=== PATIENT | female | born 1975 | race Caucasian/White ===

== ENCOUNTER 2017-08-14 20:33 | Emergency (ER) | payer OTHER ==
--- OUTSIDE RECORDS SUMMARY | 2017-08-14 20:36 | XMS REPORT ---
:1975 [facility] [address] [place] [id number] Care Team Providers Name Role Phone ANTHONY GOMEZ Unavailable Unavailable Problems This patient has no known problems. Allergies, Adverse Reactions, Alerts This patient has no known allergies or adverse reactions. Medications This patient has no known medications. Results Test Description Test Time Test Comments Text Results Atomic Results Result Comments OCCULT BLOOD, STOOL 2017-03-20 13:18:00 Test Item Value Reference Range Comments FECAL OCCULT BLOOD (BEAKER) (test onrn=500) Negative Negative OCCULT BLOOD, [id number] 13:18:00 Test Item Value Reference Range Comments FECAL OCCULT BLOOD (BEAKER) (test zmxd=712) Negative Negative CT, CTA AAA, W/ DUY.EXT.[id number] 16:59:00Reason for Exam:->esrd; eval for renal txp; PVD; please examine pelvis to toes PLEASE EXAMINE PELVIS TO TOES [facility]end[facility] BeginsREPORT STATUS :A Addendum: I agree with the previously described non vascular findings. Signed: Cheo Engel MDReport Verified Date/Time: 2016 16:59:09 Reading Location: [facility] B1 P048 Angio Body Reading RoomAddendum EndsFINAL REPORT CT angiography of the abdominal aorta with runoff, 27 February 2017 INDICATION: This is a 41 years old female, with end-stage renal disease presents for pretransplant assessment. Note, on the side of the order, it also indicates to include down to the toes, presumably for peripheral vascular disease. This study is performed in attempt to avoid an invasive procedure. TECHNIQUE: Spiral acquisition before and during contrast administration using a Siemens multidetector CT scanner. Multiplanar 3-D volumerendering reformation was performed using independent workstation interactively by the dictating physician and the 3-D specialist. The amount of contrast used and method of administration can be found in scanned EPIC document. This exam was performed according to our departmental dose- optimisation programme, which includes automated exposure control, adjustment of the mA and/or kV according to patient size and/or use of iterative reconstruction technique. Dose modulation, iterative reconstruction, and/or weight based adjustment of the mA/kV was utilized to reduce the radiation dose to as low as reasonably achievable. FINDINGS: VASCULAR: The abdominal aorta is normal in course and calibre. No atherosclerosis is seen. No acute aortic pathology is identified. Quantitative dimensions of the abdominal aorta are as follows: 1.5 cm at the mesenteric level; 1.6 cm at the renal level; 1.4 cm at the aortic bifurcation. The coeliac axis, SMA, GABE are widely patent. The renal arteries are patent though they are small in calibre consistent with end-stage renal disease. The common iliac, external iliac, common femoral arteries, bilaterally, are widely patent. No stenosis is seen and no atherosclerosis is identified. Wet Milling Wheel Operator dimensions of the left and right external iliac artery is approximately 6 mm. Similarly, in the delayed images, the pelvic veins are seen to be patent, bilaterally and no venous thrombosis is seen and no narrowing is identified. Wet Milling Wheel Operator dimension of the left and the right external iliac vein is approximately 11 mm, bilaterally. The SFA, bilaterally, are widely patent.There is minimal calcification identified in the distal left and right SFA, that is nonobstructive and eccentrically located. The left and the right profunda system are widely patent. The popliteal arteries, bilaterally , are widely patent. In the left lower extremity, the left tibioperoneal trunk has nonobstructive eccentric calcific atherosclerosis identified. No stenosis is seen. The left anterior tibial artery is well seen down to the left of the ankle and is widely patent. At image 813, at the proximal segment of the dorsalis pedis artery, that could be potentially lesion identified though it is distal in nature, incompletely assessed due to its small size. The left peroneal artery is well seen down to the level of the ankle with no stenosis identified. There is nonobstructive atherosclerosisscattered along the course of the left posterior tibial artery though no significant stenosis is seen and the plantar arch is seen proximally. In the right lower extremity, the right anterior tibial artery is well seen down to level of the ankle and the dorsalis pedis artery is well seen distally no stenosis is seen. The right tibioperoneal trunk has nonobstructive atherosclerosis identified no stenosis is identified.. The left posterior tibial artery is widely patent, well seen down to level of theankle with no stenosis identified and the plantar arch is well seen. The left peroneal artery is also patent. NONVASCULAR: The lung bases are unremarkable. In the abdomen, the liver and spleen appears unremarkable. The liver edge is smooth. No abnormal enhancing structure is identified. Patient is post cholecystectomy. The adrenal glands are not enlarged. The pancreas appears unremarkable. The kidneys are atrophic consistent with end-stage renal disease status. No hydronephrosis or perirenal fluidcollection is seen. A number of small subcentimeter hypodensities identified, too small to characterize. A parapelvic cyst is identified at image 93 in the left renal pelvis with no enhancement after contrast administration indicating simple in nature. Bowel is not well assessed by CT angiography as enteric contrast is not given. No obvious bowel dilation is identified. The appendix appears unremarkable. The bladder is not distended. The uterus is identified. Both ovaries are seen with small cysts identified. They are all less than 4 cm in size, taking into account the patient's age, likely physiologic in nature. In general, CT is not optimised in the assessment of pelvic gynecological structures. No free air or free fluid seen abdomen and pelvis. No significant retroperitoneal adenopathy is identified. Some small lymph nodes. In the bony windows, no acute bony pathology is identified. The toesare incompletely imaged though the right big toe is not identified that may be due to prior surgery.The status of the toes can be easily assessed clinically. CONCLUSIONS: 1. Unremarkable abdominal aorta. Quantitative dimensions of the abdominal aorta are as described above. 2. The pelvic arteries and the pelvic veins are patent with no arterial stenosis or venous thrombosis identified. Wet Milling Wheel Operator dimensions of the left and right external iliac artery and veins as described above. 3. The SFAand the popliteal arteries, bilaterally, are widely patent. 4. Details of the runoff vessels as described above. Essentially three-vessel runoff is seen. There is likely disease seen in the visualizeddorsalis pedis artery on the left. 5. Other findings as described above. 6. An addendum will be dictated by the Leather Grader Radiologist regarding the nonvascular findings. Signed: Dc Ramos MDReport Verified Date/Time: 02/27/2017 13:19:48 Reading Location: [place] [address] Cardiology MRI URINALYSIS W/ [id number] 15:39:00 Test Item Value Reference Range Comments COLOR (BEAKER) (test fhjl=888) Yellow CLARITY (BEAKER) (test taxd=037) Cloudy SPECIFIC GRAVITY UA (BEAKER) (test pocm=606) 1.010 1.001-1.035 PH UA (BEAKER) (test wvzx=837) 8.5 5.0-8.0 PROTEIN UA (BEAKER) (test ctoo=822) 300 mg/dL Negative GLUCOSE UA (BEAKER) (test deqt=723) 100 mg/dL Negative KETONES UA (BEAKER) (test ospd=940) Negative Negative BILIRUBIN UA (BEAKER) (test vyro=467) Negative Negative BLOOD UA (BEAKER) (test lzrm=465) Negative Negative NITRITE UA (BEAKER) (test xbrp=246) Negative Negative LEUKOCYTE ESTERASE UA (BEAKER) (test ytdr=327) Moderate Negative UROBILINOGEN UA (BEAKER) (test ikbo=497) 0.2 mg/dL 0.2-1.0 RBC UA (BEAKER) (test gbhi=235) 2 /HPF WBC UA (BEAKER) (test ncdq=848) 15 /HPF BACTERIA (BEAKER) (test nqik=918) Few SQUAMOUS EPITHELIAL (BEAKER) (test zfsh=335) 78 /HPF SOURCE(BEAKER) (test zpkm=0088) HEMOGLOBIN [id number] 19:27:00 Test Item Value Reference Range Comments HEMOGLOBIN A1C (BEAKER) (test ewwk=607) 6.1 % 4.3-6.1 URINALYSIS W/ REFLEX URINE [id number] 16:05:00 Test Item Value Reference Range Comments COLOR (BEAKER) (test dkxa=049) Yellow CLARITY (BEAKER) (test qxxw=900) Hazy SPECIFIC GRAVITY UA (BEAKER) (test eldy=636) 1.010 1.001-1.035 PH UA (BEAKER) (test iflp=789) 8.5 5.0-8.0 PROTEIN UA (BEAKER) (test zopi=219) 300 mg/dL Negative GLUCOSE UA (BEAKER) (test gszh=503) 100 mg/dL Negative KETONES UA (BEAKER) (test gfgt=565) Negative Negative BILIRUBIN UA (BEAKER) (test jlwh=004) Negative Negative BLOOD UA (BEAKER) (test xzci=969) Negative Negative NITRITE UA (BEAKER) (test ofps=316) Negative Negative LEUKOCYTE ESTERASE UA (BEAKER) (test thvl=444) Moderate Negative UROBILINOGEN UA (BEAKER) (test upxz=233) 0.2 mg/dL 0.2-1.0 RBC UA (BEAKER) (test jmyd=124) 0 /HPF WBC UA (BEAKER) (test zqtk=800) 22 /HPF BACTERIA (BEAKER) (test pqbh=121) Rare SQUAMOUS EPITHELIAL (BEAKER) (test llzm=466) 6 /HPF SOURCE(BEAKER) (test rzqn=2059) AB SPECIFICITY CLASS [id number] 12:27:00 Test Item Value Reference Range Comments DATE OF SERUM (BEAKER) (test lcrl=7716) [id number] SERUM # (BEAKER) (test tkkg=7374) [id number] AB SPECIFICITY CLASS I (BEAKER) (test See Scanned Report qdlm=9237) HLA [id number] 15:00:00 Test Item Value Reference Range Comments HLA RESULT (BEAKER) (test wrhr=4233) See Scanned Report HLA-A AG1 (BEAKER) (test ltna=6417) HLA-A AG2 (BEAKER) (test trlt=6374) HLA-B AG1 (BEAKER) (test twxc=4787) HLA-B AG2 (BEAKER) (test qfag=7081) HLA-C AG1 (BEAKER) (test aayx=6083) HLA-C AG2 (BEAKER) (test wpuk=6756) HLA-DR AG1 (BEAKER) (test ixlv=4391) HLA-DR AG2 (BEAKER) (test zgky=2187) HLA-DQ AG1 (BEAKER) (test nryf=0438) HLA-DQ AG2 (BEAKER) (test whws=7295) HLA-DRW (BEAKER) (test xdoz=9083) FLOW PRA CLASS I AND [id number] 14:59:00 Test Item Value Reference Range Comments DATE OF SERUM (FESTUS) (test idng=2753) [id number] SERUM # (FESTUS) (test pvys=1855) [id number] FLOW PRA CLASS I AND II (test hdiu=3804) See Scanned Report URINE [id number] 12:34:00 Test Item Value Reference Range Comments CULTURE (BEAKER) (test >100,000 col/mL skin chalino hsjs=9318) CYTOMEGALOVIRUS ANTIBODY, [id number] 17:38:00 Test Item Value Reference Range Comments CYTOMEGALOVIRUS IGG ANTIBODY (BEAKER) (test Negative lovb=053) CYTOMEGALOVIRUS ANTIBODY, [id number] 17:38:00 Test Item Value Reference Range Comments CYTOMEGALOVIRUS IGM ANTIBODY (BEAKER) (test Negative rvkf=848) EBV-VCA ANTIBODY, [id number] 17:38:00 Test Item Value Reference Range Comments DIANE-FUENTES VCA IGG (BEAKER) (test yzgd=340) Positive EBV-VCA ANTIBODY, [id number] 17:38:00 Test Item Value Reference Range Comments DIANE-FUENTES VCA IGM (BEAKER) (test xjxg=936) Negative VARICELLA ZOSTER ANTIBODY, [id number] 17:24:00 Test Item Value Reference Range Comments VARICELLA ZOSTER IGG (AL) (BEAKER) (test tchf=2043) 3.0 Al VARICELLA ZOSTER RESULT INTERPRETATIONS: <=0.8 Al Nonreactive: Presumed non-immune to VZV 0.9-1.0 Al Equivocal >=1.1 Al Reactive: Presumed immune to [id number] 13:58:00 Test Item Value Reference Range Comments RPR SCREEN (BEAKER) (test odjp=811) Nonreactive Nonreactive HEPATITIS B SURFACE [id number] 09:42:00 Test Item Value Reference Range Comments HEPATITIS B SURFACE ANTIGEN (2) (BEAKER) (test Nonreactive Nonreactive ziih=8248) HEPATITIS B SURFACE [id number] 09:42:00 Test Item Value Reference Range Comments HEPATITIS B SURFACE ANTIBODY (BEAKER) (test 226.3 mIU/mL <8.0 kadz=504) HEPATITIS B CORE ANTIBODY, [id number] 09:42:00 Test Item Value Reference Range Comments HEPATITIS B CORE IGM ANTIBODY (BEAKER) (test Nonreactive Nonreactive vaty=088) HEPATITIS C [id number] 09:42:00 Test Item Value Reference Range Comments HEPATITIS C ANTIBODY (BEAKER) (test adxp=122) Nonreactive Nonreactive HIV-1 ANTIGEN WITH HIV-1/2 [id number] 09:42:00 Test Item Value Reference Range Comments HIV-1 ANTIGEN WITH HIV 1\T\2 ANTIBODY (2) Nonreactive Nonreactive (BEAKER) (test fytd=9129) PTH, [id number] 09:09:00 Test Item Value Reference Range Comments PARATHYROID HORMONE INTACT (BEAKER) (test 583.0 pg/mL 8.5-72.5 qjhf=586) Effective 03/17/2014: Reference Range ChangeNew: 8.5-72.5 Previous: 15.0- 90.0CBC W/PLT COUNT & AUTO [id number] 09:07:00 Test Item Value Reference Range Comments WHITE BLOOD CELL COUNT (BEAKER) (test xcnj=548) 8.6 K/ L 4.0-10.0 RED BLOOD CELL COUNT (BEAKER) (test dvjy=149) 3.36 M/ L 4.00-5.00 HEMOGLOBIN (BEAKER) (test wxdw=318) 11.4 GM/DL 12.0-15.0 HEMATOCRIT (BEAKER) (test jheq=915) 34.1 % 36.0-45.0 MEAN CORPUSCULAR VOLUME (BEAKER) (test fbey=187) 102.0 fL 82.0-99.0 MEAN CORPUSCULAR HEMOGLOBIN (BEAKER) (test 34.0 pg 27.0-33.0 qclh=515) MEAN CORPUSCULAR HEMOGLOBIN CONC (BEAKER) (test 33.4 GM/DL 32.0-36.0 dlov=076) RED CELL DISTRIBUTION WIDTH (BEAKER) (test 12.8 % 10.3-14.2 uwxe=182) PLATELET COUNT (BEAKER) (test vbcf=786) 289 K/CU MM 150-430 MEAN PLATELET VOLUME (BEAKER) (test gfto=260) 9.1 fL 6.5-10.5 NUCLEATED RED BLOOD CELLS (BEAKER) (test 0 /100 WBC 0-0 lqou=287) NEUTROPHILS RELATIVE PERCENT (BEAKER) (test 68 % zoly=490) LYMPHOCYTES RELATIVE PERCENT (BEAKER) (test 18 % tqva=200) MONOCYTES RELATIVE PERCENT (BEAKER) (test 9 % mfhk=203) EOSINOPHILS RELATIVE PERCENT (BEAKER) (test 4 % ptok=963) BASOPHILS RELATIVE PERCENT (BEAKER) (test 1 % qbxp=529) NEUTROPHILS ABSOLUTE COUNT (BEAKER) (test 5.81 K/ L 1.80-8.00 rtta=285) LYMPHOCYTES ABSOLUTE COUNT (BEAKER) (test 1.56 K/ L 1.48-4.50 yeyf=528) MONOCYTES ABSOLUTE COUNT (BEAKER) (test 0.73 K/ L 0.00-1.30 uquf=214) EOSINOPHILS ABSOLUTE COUNT (BEAKER) (test 0.38 K/ L 0.00-0.50 vuna=391) BASOPHILS ABSOLUTE COUNT (BEAKER) (test 0.06 K/ L 0.00-0.20 qqmq=168) 0.00COMPREHENSIVE METABOLIC [id number] 09:05:00 Test Item Value Reference Range Comments TOTAL PROTEIN (BEAKER) 8.5 gm/dL 6.0-8.3 (test ooig=036) ALBUMIN (BEAKER) (test 4.1 g/dL 3.5-5.0 xjmp=5045) ALKALINE PHOSPHATASE 111 U/L 40-150 (BEAKER) (test xlsz=492) BILIRUBIN TOTAL (BEAKER) 0.5 mg/dL 0.2-1.2 (test utfl=739) SODIUM (BEAKER) (test 140 meq/L 136-145 wbgw=024) POTASSIUM (BEAKER) (test 4.4 meq/L 3.5-5.1 kqld=337) CHLORIDE (BEAKER) (test 92 meq/L 98-107 sqiy=935) CO2 (BEAKER) (test 31 meq/L 22-29 ubal=118) BLOOD UREA NITROGEN 34 mg/dL 7-21 (BEAKER) (test wwnk=417) CREATININE (BEAKER) (test 7.06 mg/dL 0.57-1.25 xnlr=286) GLUCOSE RANDOM (BEAKER) 109 mg/dL 70-105 (test uhhm=798) CALCIUM (BEAKER) (test 9.5 mg/dL 8.4-10.2 syqf=143) AST (SGOT) (BEAKER) (test 16 U/L 5-34 urzi=782) ALT (SGPT) (BEAKER) (test 13 U/L 6-55 nxbp=357) EGFR (BEAKER) (test 6 mL/min/1.73 sq m ESTIMATED GFR IS NOT vstd=8879) ACCURATE CREATININE CLEARANCE IN PREDICTING GLOMERULAR FILTRATION RATE. ESTIMATED GFR IS NOT APPLICABLE FOR DIALYSIS PATIENTS. URIC [id number] 09:04:00 Test Item Value Reference Range Comments URIC ACID (BEAKER) (test fweh=135) 5.3 mg/dL 2.6-7.2 [id number] 09:04:00 Test Item Value Reference Range Comments PHOSPHORUS (BEAKER) (test qtpf=600) 4.8 mg/dL 2.3-4.7 LIPID [id number] 09:04:00 Test Item Value Reference Range Comments TRIGLYCERIDES (BEAKER) (test dlez=374) 214 mg/dL CHOLESTEROL (BEAKER) (test ucil=849) 192 mg/dL HDL CHOLESTEROL (BEAKER) (test mcny=193) 41 mg/dL LDL CHOLESTEROL CALCULATED (BEAKER) (test 108 mg/dL dzac=395) Triglyceride Reference Range: Low Risk <150 Borderline 150- 199 High Risk 200-499 Very High Risk >=500Cholesterol Reference Range: Low Risk <200 Borderline 200-239 High Risk > 240HDL Cholesterol Reference Range: Low Risk >=60 High Risk <40LDL Cholesterol Reference Range: Optimal <100 Near Optimal 100-129 Borderline 130-159 High 160-189 Very High >=190GAMMA GLUTAMYL TRANSFERASE (GGT)2016-07-25 09:04:00 Test Item Value Reference Range Comments GAMMA GLUTAMYL TRANSFERASE (BEAKER) (test fdcx=915) 11 U/L 9-64 LACTATE DEHYDROGENASE (LDH)2016-07-25 09:04:00 Test Item Value Reference Range Comments LACTATE DEHYDROGENASE (BEAKER) (test pjyd=776) 346 U/L 125-220 PT/[id number] 08:56:00 Test Item Value Reference Range Comments PROTIME (BEAKER) (test rjku=774) 13.6 seconds 11.7-14.7 INR (BEAKER) (test ohyp=198) 1.1 <=5.9 PARTIAL THROMBOPLASTIN TIME (BEAKER) (test 34.9 seconds 22.5-36.0 qeje=009) RECOMMENDED COUMADIN/WARFARIN INR THERAPY RANGESSTANDARD DOSE: 2.0 - 3.0 Includes: PROPHYLAXIS forvenous thrombosis, systemic embolization; TREATMENT for venous thrombosis and/or pulmonary embolus.HIGH RISK: Target INR is 2.5-3.5 for patients with mechanical heart valves.
--- OUTSIDE RECORDS SUMMARY | 2017-08-14 20:36 | XMS REPORT | Clinical Summary ---
:1975 Author Organization [facility] Address [address] [place] [address] Phone Care Team Providers Name Role Phone Unavailable Primary Care Provider Unavailable Allergies No Known Allergies Current Medications Prescription Sig. Disp. Refills Start Date End Date Status cloNIDine HCl Take 0.2 mg by mouth 2 Active (CATAPRES) 0.2 MG (two) times daily. tablet pioglitazone (ACTOS) Take 30 mg by mouth Active 30 MG tablet daily. insulin glargine Inject 28 Units Active (LANTUS) 100 unit/mL subcutaneously nightly injection Use as directed . calcium acetate 668 Take 1,336 mg by mouth Active mg (169 mg calcium) 3 (three) times daily Tab with meals . sevelamer (RENVELA) Take 800 mg by mouth 3 Active 800 mg tablet (three) times daily with meals. Active Problems Problem Noted Date Hypertension 03/20/2017 Last Assessment & Plan: Blood pressure well controlled on current medications. Pre-transplant evaluation for chronic kidney disease 12/21/2016 Last Assessment & Plan: Patient to be listed. ESRD (end stage renal disease) on dialysis ([facility]) 12/21/2016 Last Assessment & Plan: To list patient for transplant. Diabetic nephropathy associated with other specified diabetes mellitus 2016 ([facility]) Last Assessment & Plan: Has lost sensation in feet/legs. No pain. No intervention at this time. 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 Encouraged to exercise by walking for at least 20 min 3x a week. Hyperlipidemia, unspecified hyperlipidemia type 12/21/2016 Encounters Date Type Specialty Care Team Description 06/19/2017 Evaluation Transplant Best, ESRD (end stage Bhamidipati renal disease) on MD Lakhwinder dialysis ([facility]) (Primary Dx) 06/08/2017 Orders Only Lab Anjelica ESRD (end stage Cynthia Martinez MD renal disease) on dialysis ([facility]);Patient awaiting renal transplant 05/11/2017 Orders Only Lab Best, ESRD (end stage Bhamidipati renal disease) on MD Lakhwinder dialysis ([facility]);Patient awaiting renal transplant 05/08/2017 Orders Only Transplant Rebecca Hendrickson RN ESRD (end stage renal disease) on dialysis ([facility]) (Primary Dx);Patient awaiting renal transplant 05/01/2017 Abstract Transplant 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, AZUL 04/25/2017 Documentation Transplant Lori Quiñones 04/19/2017 Documentation Transplant Orion Rodriguez 04/19/2017 Documentation Transplant Rebecca Hendrickson, AZUL 04/14/2017 [facility] Charge Visit Transplant Sebastián Jewell MD Provider, [facility] Registry Generic 03/20/2017 Evaluation Transplant Best, Hypertension, Sebastián unspecified MD Lakhwinder type;ESRD (end stage renal disease) on dialysis ([facility]);Obesity (BMI 30-39.9);Pre-transpl ant evaluation for chronic kidney disease;Diabetic nephropathy associated with other specified diabetes mellitus ([facility]) 03/20/2017 Ancillary Orders Sebastián Bryan MD 03/20/2017 Ancillary Orders Sebastián Bryan MD 03/20/2017 Orders Only Transplant Aldair Escobar ESRD (end stage Hepatology renal disease) ([facility]);Pre-transplant evaluation for chronic kidney disease;Anemia of renal disease 03/20/2017 Orders Only Transplant Keyonna, Susanna, ESRD (end stage sales support engineer disease) ([facility]) (Primary Dx);Pre-transplant evaluation for chronic kidney disease;Anemia of renal disease 02/27/2017 Hospital Encounter Radiology Best, ESRD (end stage Bhamidipati renal disease) MD Lakhwinder ([facility]);Pre-transplant evaluation for chronic kidney disease;PVD (peripheral vascular disease) ([facility]) 02/27/2017 Telephone Transplant Sim, Na Y Appointment 01/29/2017 Orders Only Transplant 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, ESRD (end stage sales support engineer disease) ([facility]) (Primary Dx);Pre-transplant evaluation for chronic kidney disease;PVD (peripheral vascular disease) ([facility]) 01/29/2017 Orders Only Transplant 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 RN 01/26/2017 Orders Only Transplant 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 RN 01/22/2017 Telephone Transplant 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, 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 12/21/2016 Orders Only Transplant Best, ESRD (end stage Hepatology Bhamidipati renal disease) MD Lakhwinder ([facility]);Pre-transplant evaluation for chronic kidney disease;Other specified diabetes mellitus ([facility]);ESRD (end stage renal disease) on dialysis ([facility]) 12/21/2016 Evaluation Transplant Best, ESRD (end stage Bhamidipati renal disease) on MD Lakhwinder dialysis ([facility]) (Primary Dx);Pre-transplant evaluation for chronic kidney disease 12/21/2016 Evaluation Transplant Best, Pre-transplant Bhamidipati evaluation for MD Lakhwinder chronic kidney disease (Primary Dx);ESRD (end stage renal disease) on dialysis ([facility]);Diabetic nephropathy associated with other specified diabetes mellitus ([facility]);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, unspecified proliferative retinopathy type ([facility]);Blindness of left eye;Diabetic polyneuropathy associated with type 2 diabetes mellitus ([facility]) 12/21/2016 Orders Only Transplant 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, ESRD (end stage sales support engineer disease) ([facility]) (Primary Dx);Pre-transplant evaluation for chronic kidney disease;Other specified diabetes mellitus ([facility]) 12/21/2016 Committee Review Transplant Sim, Na Y 10/23/2016 Orders Only Transplant ProviderFelisa MD 10/20/2016 Telephone Transplant Sim, Na Y Appointment 09/07/2016 Telephone Transplant Neyda Robin Appointment (called patient about appointment with Dr. 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 Pre-evaluation after 08/13/2016 Family History Medical History Relation Name Comments Unremarkable Brother Diabetes Mother Hypertension Mother Lupus Mother Diabetes Sister Diabetes Sister Unremarkable Sister Relation Name Status Comments Brother Alive Father from a work accident Mother Alive Sister Alive Sister Alive Sister Alive Social History Tobacco Use Types Packs/Day Years Used Date Never Smoker Smokeless Tobacco: Never Used Alcohol Use Drinks/Week oz/Week Comments No Sex Assigned at Date Recorded Not on file Last Filed Vital Signs Vital Sign Reading Time Taken Blood Pressure 120/80 03/20/2017 10:07 AM [employer] Pulse 89 03/20/2017 10:07 AM [employer] Temperature 36.8 C (98.2 F) 03/20/2017 10:07 AM [employer] Respiratory Rate 16 03/20/2017 10:07 AM [employer] Oxygen Saturation 100% 03/20/2017 10:07 AM [employer] Inhaled Oxygen Concentration - - Weight 113.6 kg (250 lb 8 oz) 06/19/2017 10:50 AM [employer] Height 177.8 cm (5' 10") 06/19/2017 10:50 AM [employer] Body Mass Index 35.94 06/19/2017 10:50 AM [employer] Plan of Treatment Health Maintenance Due Date Last Done Comments INFLUENZA VACCINE 01/28/2018 Results Flow PRA Class II (06/08/2017 11:11 AM)Only the most recent of2 resultswithin the time period is included. Component Value Ref Range Flow Class II Percent Positive 0 Flow Class Report Comments Specimen Performing Laboratory Blood [facility] TEST[facility] ONE Rafaelmichael Lozada, MS: [id number] [place] [address] Flow PRA Class I (06/08/2017 11:11 AM)Only the most recent of2 resultswithin the time period is included. Component Value Ref Range Flow Class I Percent Positive 6 Flow Class Report Comments Specimen Performing Laboratory Blood [facility] TEST[facility] ONE [facility] [place], MS: [id number] [place] [address] AB Specificity Class I (06/08/2017 11:11 AM)Only the most recent of3 resultswithin the time period is included. Component Value Ref Range AB Specificity Class I NO CLASS I ANTIBODY DETECTED WITH MFIs > 4000 AB Specificity Titr Class Report Specimen Performing Laboratory Blood [facility] TEST[facility] ONE Rafael Lozada, MS: [id number] [place] [address] Occult blood, stool (03/20/2017 11:24 AM)Only the most recent of2 resultswithin the time period is included. Component Value Ref Range Occult blood Negative Negative Specimen Performing Laboratory Stool [facility] [address] [address] CTA AAA and Runoff (02/27/2017 12:28 PM) Specimen Performing Laboratory Guess Your Songs RIS Narrative Addendum Begins REPORT STATUS:A Addendum: I agree with the previously described non vascular findings. Signed: Cheo Engel MD Report Verified Date/Time:02/27/2017 16:59:09 Reading Location: [place] [id number] Angio Body Reading Room Addendum Ends FINAL REPORT CT angiography of the abdominal aorta [...] a Siemens multidetector CT scanner. Multiplanar 3-D volume rendering reformation was performed using independent workstation interactively by the dictating physician and the 3-D specialist. The amount of contrast used and method of administration can be found in scanned EPIC document. This exam was performed according to our departmental dose-optimisation programme, which includes automated exposure control, adjustment [...] is seen and no atherosclerosis is identified. Vocational Guidance Counselor dimensions of the left and right external iliac artery is approximately 6 mm. Similarly, in the delayed images, the pelvic veins are seen to be patent, bilaterally and no venous thrombosis is seen and no narrowing is identified. Vocational Guidance Counselor dimension of the left and the right external iliac vein is approximately 11 mm, bilaterally. The SFA, bilaterally, are widely patent. There is minimal calcification identified in the distal left and right SFA, that is nonobstructive and eccentrically located. The left and the right profunda system are widely patent. The popliteal arteries, bilaterally, are widely patent. In the left lower [...] with no stenosis identified. There is nonobstructive atherosclerosis scattered along the course of the left posterior [...] patent, well seen down to level of the ankle with no stenosis identified and the plantar [...] renal disease status. No hydronephrosis or perirenal fluid collection is seen. A number of small subcentimeter [...] no acute bony pathology is identified. The toes are incompletely imaged though the right big toe is not identified that may be due to prior surgery. The status of the toes can be easily assessed clinically. CONCLUSIONS: 1.Unremarkable abdominal aorta. Quantitative dimensions of the abdominal aorta are as described above. 2.The pelvic arteries and the pelvic veins are patent with no arterial stenosis or venous thrombosis identified. Vocational Guidance Counselor dimensions of the left and right external iliac artery and veins as described above. 3.The SFA and the popliteal arteries, bilaterally, are widely patent. 4.Details of the runoff vessels as described above. Essentially three-vessel runoff is seen. There is likely disease seen in the visualized dorsalis pedis artery on the left. 5.Other findings as described above. 6.An addendum will be dictated by the Harness Fitter Radiologist regarding the nonvascular findings. Signed: Dc Ramos MD Report Verified Date/Time:02/27/2017 13:19:48 Reading Location: [place] [address] Cardiology MRI Procedure Note Interface, External Ris In - 02/27/2017 5:01 PM CDT Addendum Begins REPORT STATUS:A Addendum: I agree with the previously described non vascular findings. Signed: Cheo Engel MD Report Verified Date/Time: 02/27/2017 16:59:09 Reading Location: [facility] P048 Angio Body Reading Room Addendum Ends FINAL REPORT CT angiography of the abdominal aorta [...] a Siemens multidetector CT scanner. Multiplanar 3-D volume rendering reformation was performed using independent workstation interactively by the dictating physician and the 3-D specialist. The amount of contrast used and method of administration can be found in scanned EPIC document. This exam was performed according to our departmental dose-optimisation programme, which includes automated exposure control, adjustment [...] is seen and no atherosclerosis is identified. Vocational Guidance Counselor dimensions of the left and right external iliac artery is approximately 6 mm. Similarly, in the delayed images, the pelvic veins are seen to be patent, bilaterally and no venous thrombosis is seen and no narrowing is identified. Vocational Guidance Counselor dimension of the left and the right external iliac vein is approximately 11 mm, bilaterally. The SFA, bilaterally, are widely patent. There is minimal calcification identified in the distal left and right SFA, that is nonobstructive and eccentrically located. The left and the right profunda system are widely patent. The popliteal arteries, bilaterally, are widely patent. In the left lower [...] with no stenosis identified. There is nonobstructive atherosclerosis scattered along the course of the left posterior [...] patent, well seen down to level of the ankle with no stenosis identified and the plantar [...] renal disease status. No hydronephrosis or perirenal fluid collection is seen. A number of small subcentimeter [...] no acute bony pathology is identified. The toes are incompletely imaged though the right big toe is not identified that may be due to prior surgery. The status of the toes can be easily assessed clinically. CONCLUSIONS: 1. Unremarkable abdominal aorta. Quantitative dimensions of the abdominal aorta are as described above. 2. The pelvic arteries and the pelvic veins are patent with no arterial stenosis or venous thrombosis identified. Vocational Guidance Counselor dimensions of the left and right external iliac artery and veins as described above. 3. The SFA and the popliteal arteries, bilaterally, are widely patent. 4. Details of the runoff vessels as described above. Essentially three-vessel runoff is seen. There is likely disease seen in the visualized dorsalis pedis artery on the left. 5. Other findings as described above. 6. An addendum will be dictated by the Harness Fitter Radiologist regarding the nonvascular findings. Signed: Dc Ramos MD Report Verified Date/Time: 02/27/2017 13:19:48 Reading Location: [place] [address] Cardiology MRI Urinalysis w/Microscopic (02/27/2017 11:49 AM) Component Value Ref Range Color, UA Yellow Clarity, UA Cloudy Specific [place], UA 1.010 1.001 - 1.035 pH, UA 8.5 (H) 5.0 - 8.0 Protein, UA 300 mg/dL (A) Negative Glucose, UA 100 mg/dL (A) Negative Ketones, UA Negative Negative Bilirubin, UA Negative Negative Blood, UA Negative Negative Nitrite, UA Negative Negative Leukocytes, UA Moderate (A) Negative Urobilinogen, UA 0.2 0.2 - 1.0 mg/dL RBC, UA 2 /HPF WBC, UA 15 /HPF Bacteria, UA Few Squam Epithel, UA 78 /HPF Specimen Source Specimen Performing Laboratory Urine [address] [address] Urinalysis w/Microscopic + Reflex to Culture (12/21/2016 2:49 PM) Component Value Ref Range Color, UA Yellow Clarity, UA Hazy Specific [place], UA 1.010 1.001 - 1.035 pH, UA 8.5 (H) 5.0 - 8.0 Protein, UA 300 mg/dL (A) Negative Glucose, UA 100 mg/dL (A) Negative Ketones, UA Negative Negative Bilirubin, UA Negative Negative Blood, UA Negative Negative Nitrite, UA Negative Negative Leukocytes, UA Moderate (A) Negative Urobilinogen, UA 0.2 0.2 - 1.0 mg/dL RBC, UA 0 /HPF WBC, UA 22 /HPF Bacteria, UA Rare Squam Epithel, UA 6 /HPF Specimen Source Specimen Performing Laboratory Urine [address] [address] Urine culture (12/21/2016 2:49 PM) Component Value Ref Range Result >100,000 col/mL skin chalino Specimen Performing Laboratory Urine [address] [address] Hemoglobin A1c (12/21/2016 2:26 PM) Component Value Ref Range Hemoglobin A1C 6.1 4.3 - 6.1 % Specimen Performing Laboratory Blood [facility] [address] [address] Mammography breast specimen (10/13/2016)PAP smear, thin prep (09/04/2016) Specimen Performing Laboratory Other after 08/13/2016
--- NOTE | 2017-08-14 21:34 | EDPHYS ---
Physician Documentation [facility] Name: Alba Aldridge Age: 42 yrs Sex: Female : 1975 Arrival Date: 08/14/2017 Time: 20:37 Bed Treatment Private MD: Kelli Schmid ED Physician Reuben Marin HPI: 08/14 21:32 This 42 yrs old Female presents to ER via Ambulatory with complaints of Dog kb Bite. 21:32 by a dog. Onset: The symptoms/episode began/occurred just prior to arrival. Animal kb information: The animal was reported to appear healthy. Animal's vaccinations are up to date. Secondary to the bite the patient reports multiple lacerations, that are superficial. Associated signs and symptoms: The patient has no apparent associated signs or symptoms. Severity of symptoms: At their worst the symptoms were mild, in the emergency department the symptoms are unchanged. The patient has not experienced similar symptoms in the past. The patient has not recently seen a physician. 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 - Social history:: Smoking status: Patient/guardian denies using tobacco. ROS: 21:32 Constitutional: Negative for fever, chills, and weight loss, Neck: Negative for injury, kb pain, and swelling, Cardiovascular: Negative for chest pain, palpitations, and edema, Respiratory: Negative for shortness of breath, cough, wheezing, and pleuritic chest pain, Abdomen/GI: Negative for abdominal pain, nausea, vomiting, diarrhea, and constipation, MS/Extremity: Negative for injury and deformity, Neuro: Negative for headache, weakness, numbness, tingling, and seizure. 21:32 Skin: Positive for laceration(s), of the right foot. Exam: 21:32 Constitutional: This is a well developed, well nourished patient who is awake, alert, kb and in no acute distress. Head/Face: Normocephalic, atraumatic. Chest/axilla: Normal chest wall appearance and motion. Nontender with no deformity. No lesions are appreciated. Cardiovascular: Regular rate and rhythm with a normal S1 and S2. No gallops, murmurs, or rubs. Normal PMI, no JVD. No pulse deficits. Respiratory: Lungs have equal breath sounds bilaterally, clear to auscultation and percussion. No rales, rhonchi or wheezes noted. No increased work of breathing, no retractions or nasal flaring. Abdomen/GI: Soft, non-tender, with normal bowel sounds. No distension or tympany. No guarding or rebound. No evidence of tenderness throughout. MS/ Extremity: Pulses equal, no cyanosis. Neurovascular intact. Full, normal range of motion. Neuro: Awake and alert, GCS 15, oriented to person, place, time, and situation. Cranial nerves II-XII grossly intact. Motor strength 5/5 in all extremities. Sensory grossly intact. Cerebellar exam normal. Normal gait. 21:32 Skin: injury, bite(s), superficial, of the right foot. Vital Signs: 20:45 BP 162 / 83; Pulse 87; Resp 18; Temp 97.2; Pulse Ox 100% on R/A; Weight 112.49 kg; aa1 Height 5 ft. 11 in. (180.34 cm); Pain 0/10; 20:45 Body Mass Index 34.59 (112.49 kg, 180.34 cm) aa1 MDM: 21:03 Patient medically screened. kb 21:32 Data reviewed: vital signs, nurses notes. Data interpreted: Pulse oximetry: on room air kb is 100 %. Interpretation: normal. Counseling: I had a detailed discussion with the patient and/or guardian regarding: the historical points, exam findings, and any diagnostic results supporting the discharge/admit diagnosis, the need for outpatient follow up, a family practitioner, to return to the emergency department if symptoms worsen or persist or if there are any questions or concerns that arise at home. Administered Medications: 21:52 Drug: Tetanus-Diphtheria Toxoid Adult 0.5 ml {[place] Operator: [employer]. Exp: bb 11/30/2019. Lot #: [id number]. } Route: IM; Site: left deltoid; 21:59 Follow up: Response: No adverse reaction bb 21:54 Drug: Augmentin 875 mg Route: PO; bb 21:59 Follow up: Response: No adverse reaction bb Disposition: 08/14/17 21:33 Discharged to Home. Impression: Bitten by dog. - Condition is Stable. - Discharge Instructions: Animal Bite, [id number]. - Prescriptions for Augmentin 875- 125 mg Oral Tablet - take 1 tablet by ORAL route every 12 hours for 7 days; 14 tablet. - Medication Reconciliation Form, Thank You Letter, Antibiotic Education, Prescription Opioid Use form. - Follow up: Emergency Department; When: As needed; Reason: Worsening of condition. Follow up: Private Physician; When: 2 - 3 days; Reason: Recheck today's complaints, Continuance of care, Re-evaluation by your physician. Addendum: 08/16/2017 18:57 Co-signature as Attending Physician, Reuben Marin MD I agree with the assessment and c edge plan of care. Signatures: Elham Narayan, INTERNATIONAL TRAVEL CONSULTANT-C INTERNATIONAL TRAVEL CONSULTANT-Ckb Gabrielle Zarate, RN RN aa1 Reuben Marin MD MD cha Ballard, Brenda, RN RN bb
--- NOTE | 2017-08-14 21:34 | ER ---
Nurse's Notes [facility] Emergency Department Name: Alba Aldridge Age: 42 yrs Sex: Female : 1975 Arrival Date: 08/14/2017 Time: 20:37 Bed Treatment Private MD: Kelli Schmid Diagnosis: Bitten by dog Presentation: 08/14 20:40 Presenting complaint: Patient states: her dog bit her on her R foot a couples hours aa1 ago. 2 small lacerations noted. Reports pet current on vaccinations. Transition of care: patient was not received from another setting of care. Onset of symptoms was August 14, 2017. Initial Sepsis Screen: Does the patient meet any 2 criteria? No. Patient's initial sepsis screen is negative. Care prior to arrival: None. 20:40 Method Of Arrival: Ambulatory aa1 20:40 Acuity: KADIE 4 aa1 20:50 Note [place] [facility] [employer] notified. aa1 Triage Assessment: 20:45 Bite description: bite sustained to right foot by a dog, animal information: aa1 vaccination(s) is current. General: Appears in no apparent distress. comfortable, Behavior is calm, cooperative, appropriate for age. 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 - Social history:: Smoking status: Patient/guardian denies using tobacco. Screenin:54 Abuse screen: Denies threats or abuse. Nutritional screening: No deficits noted. bb Tuberculosis screening: No symptoms or risk factors identified. Fall Risk None identified. Assessment: 21:54 General: Appears in no apparent distress. Behavior is calm, cooperative. Pain: bb Complains of pain in right foot. Neuro: Level of Consciousness is awake, alert, obeys commands, Oriented to person, place, time, situation. Cardiovascular: No deficits noted. Respiratory: Respiratory effort is even, unlabored. GI: No signs and/or symptoms were reported involving the gastrointestinal system. Derm: Skin is thin, Skin is pink, warm \T\ dry. Reports dog bite to right foot with several small abrasions. Musculoskeletal: Circulation, motion, and sensation intact. Injury Description: Abrasion sustained to right foot. 21:59 Reassessment: pt verbalized understanding of and agrees to plan of care discharge bb instructions given pt ambulated with steady gait to exit accompanied by family. Vital Signs: 20:45 BP 162 / 83; Pulse 87; Resp 18; Temp 97.2; Pulse Ox 100% on R/A; Weight 112.49 kg; aa1 Height 5 ft. 11 in. (180.34 cm); Pain 0/10; 20:45 Body Mass Index 34.59 (112.49 kg, 180.34 cm) aa1 ED Course: 20:37 Patient arrived in ED. es 20:37 Kelli Schmid MD is Private Physician. es 20:43 Triage completed. aa1 20:45 Arm band placed on right wrist. aa1 20:47 Elham Narayan FNP-C is [facility]. kb 20:47 Reuben Marin MD is Attending Physician. kb 21:54 Patient has correct armband on for positive identification. Adult w/ patient. bb 21:54 No provider procedures requiring assistance completed. Patient did not have IV access bb during this emergency room visit. Administered Medications: 21:52 Drug: Tetanus-Diphtheria Toxoid Adult 0.5 ml {Auto Hauler: [employer]. Exp: bb 11/30/2019. Lot #: [id number]. } Route: IM; Site: left deltoid; 21:59 Follow up: Response: No adverse reaction bb 21:54 Drug: Augmentin 875 mg Route: PO; bb 21:59 Follow up: Response: No adverse reaction bb Outcome: 21:33 Discharge ordered by . kb 22:00 Discharged to home ambulatory, with family. bb 22:00 Condition: stable 22:00 Discharge instructions given to patient, Instructed on discharge instructions, follow up and referral plans. medication usage, wound care, Demonstrated understanding of instructions, follow-up care, medications, wound care, Prescriptions given X 1. 22:00 Patient left the ED. bb Signatures: Elham Narayan, LOYDA-C WAVE SOLDER OFFBEARER-Gabrielle Burleson RN RN aa1 Darya Davey Brenda, AZUL RN bb
[2017-08-14] MEDS ORDERED: TETANUS & DIPHTHERIA TOX,ADULT 0.5 ML VIAL ONE (21:48)
[2017-08-14] MEDS ORDERED: AMOX/K CLAV 875 MG TAB ONE (21:48)
[2017-08-14 22:06] VITALS: BP 162/83; TEMP 97.2; O2SAT 100
== END 2017-08-14 22:00 | disposition home or self-care (01) ==
LOC: ER 20:33
DX: S91.311A Laceration without foreign body, right foot, initial encounter (principal); W54.0XXA Bitten by dog, initial encounter; Y93.9 Activity, unspecified; Y92.9 Unspecified place or not applicable; Z79.4 Long term (current) use of insulin; Z99.2 Dependence on renal dialysis; Z23 Encounter for immunization; I10 Essential (primary) hypertension; E11.9 Type 2 diabetes mellitus without complications
CPT/HCPCS: 90714; 99283

== ENCOUNTER 2018-11-18 11:48 | Emergency (ER) | payer OTHER ==
--- OUTSIDE RECORDS SUMMARY | 2018-11-18 12:19 | XMS REPORT | Clinical Summary ---
:1975 Author Organization [facility] Address [address] [place] [address] Care Team Providers Name Role Phone Kelli Schmid MD Primary Care Provider Clint Granger Referring Physician Allergies No Known Allergies Medications Medication Sig Dispensed Refills Start Date End Date Status cloNIDine HCl Take 0.2 mg by mouth 0 Active (CATAPRES) 0.2 MG 2 (two) times daily. tablet pioglitazone Take 30 mg by mouth 0 Active (ACTOS) 30 MG daily. tablet insulin glargine Inject 28 Units 0 Active (LANTUS) 100 subcutaneously unit/mL injection nightly Use as directed . calcium acetate 668 Take 1,336 mg by 0 Active mg (169 mg calcium) mouth 3 (three) times Tab daily with meals . sevelamer (RENVELA) Take 800 mg by mouth 0 Active 800 mg tablet 3 (three) times daily with meals. verapamil HCl Take 10 mg by mouth 0 Active (VERAPAMIL ORAL) daily. Active Problems Problem Noted Date Patient awaiting renal transplant 04/05/2018 Essential hypertension 03/20/2017 Last Assessment & Plan: Blood pressure well controlled on current medications. Pre-transplant evaluation for chronic kidney disease 12/21/2016 Last Assessment & Plan: Patient to be listed. ESRD (end stage renal disease) on dialysis 12/21/2016 Last Assessment & Plan: To list patient for transplant. Diabetic nephropathy associated with other specified diabetes mellitus 2016 Last Assessment & Plan: Has lost sensation in feet/legs. No pain. No intervention at this time. 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 Encouraged to exercise by walking for at least 20 min 3x a week. Hyperlipidemia, unspecified hyperlipidemia type 12/21/2016 Encounters Date Type Specialty Care Team Description 11/04/2018 Orders Only Lab Cynthia Dejesus Awaiting transplantation MD Michelle of kidney 05/06/2018 Orders Only Transplant Rebecca Hendrickson RN Awaiting transplantation of kidney (Primary Dx) 04/04/2018 Evaluation Transplant Sebastián Jewell Pre-transplant evaluation for chronic kidney disease (Primary Dx); MD Lakhwinder Patient awaiting renal transplant; ESRD (end stage renal disease) on dialysis (HCC); Diabetic nephropathy associated with other specified diabetes mellitus (HCC); PVD (peripheral vascular disease) (HCC); Blindness of left eye; Obesity (BMI 30-39.9); Hyperlipidemia, unspecified hyperlipidemia type; Essential hypertension; 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, unspecified proliferative retinopathy type (HCC); Diabetic polyneuropathy associated with type 2 diabetes mellitus (HCC) 04/04/2018 Hospital Encounter Cardiology Sebastián Jewell ESRD (end stage renal disease) on dialysis ([facility]); MD Lakhwinder Diabetic nephropathy associated with other specified diabetes mellitus (HCC); PVD (peripheral vascular disease) (HCC); Pre-transplant evaluation for chronic kidney disease; Blindness of left eye; Obesity (BMI 30-39.9); Hyperlipidemia, unspecified hyperlipidemia type; Hypertension, unspecified type 01/22/2018 Telephone Transplant Lori Quiñones Appointment (Stress Echo + Updates) 01/22/2018 Documentation Transplant Lori Quiñones 12/24/2017 Orders Only Transplant Rebecca Hendrickson, RN ESRD (end stage renal disease) on dialysis (HCC) (Primary Dx); Diabetic nephropathy associated with other specified diabetes mellitus (HCC); PVD (peripheral vascular disease) ([facility]); Pre-transplant evaluation for chronic kidney disease; Blindness of left eye; Obesity (BMI 30-39.9); Hyperlipidemia, unspecified hyperlipidemia type; Hypertension, unspecified type after 11/17/2017 Family History Medical History Relation Name Comments [...] Assigned at Date Recorded Not on file Job Start Date Occupation Industry Not on file Not on file Not on file Travel History Travel Start Travel End No recent travel history available. Last Filed Vital Signs Vital Sign Reading Time Taken Blood Pressure 107/74 04/04/2018 12:13 PM ERADICATOR Pulse 104 04/04/2018 12:13 PM ERADICATOR Temperature 36.8 C (98.2 F) 04/04/2018 12:13 PM ERADICATOR Respiratory Rate 18 04/04/2018 12:13 PM ERADICATOR Oxygen Saturation 100% 04/04/2018 12:13 PM ERADICATOR Inhaled Oxygen Concentration - - Weight 111.8 kg (246 lb 8 oz) 04/04/2018 12:13 PM ERADICATOR Height 177.8 cm (5' 10") 04/04/2018 12:13 PM ERADICATOR Body Mass Index 35.37 04/04/2018 12:13 PM ERADICATOR Plan of Treatment Not on file Procedures Procedure Name Priority Date/Time Associated Diagnosis Comments AB SPECIFICITY Routine 11/04/2018 12:29 Awaiting Results for this CLASS I PM CDT transplantation of procedure are in kidney the results section. FLOW PRA CLASS II Routine 11/04/2018 12:29 Awaiting Results for this WITH REFLEX TO PM CDT transplantation of procedure are in ANTIBODY kidney the results SPECIFICITY section. FLOW PRA CLASS I Routine 11/04/2018 12:29 Awaiting Results for this WITH REFLEX TO PM CDT transplantation of procedure are in ANTIBODY kidney the results SPECIFICITY section. FLOW PRA CLASS II Routine 08/01/2018 2:40 Awaiting Results for this WITH REFLEX TO PM CDT transplantation of procedure are in ANTIBODY kidney the results SPECIFICITY section. FLOW PRA CLASS I Routine 08/01/2018 2:40 Awaiting Results for this WITH REFLEX TO PM CDT transplantation of procedure are in ANTIBODY kidney the results SPECIFICITY section. PERIPHERAL VASCULAR 04/15/2018 2:20 REPORT - SCAN PM ERADICATOR PERIPHERAL VASCULAR 04/04/2018 4:20 REPORT - SCAN PM ERADICATOR FLOW PRA CLASS II Routine 04/04/2018 1:18 ESRD (end stage renal Results for this WITH REFLEX TO PM ERADICATOR disease) on dialysis procedure are in ANTIBODY (HCC) the results SPECIFICITY Patient awaiting renal section. transplant FLOW PRA CLASS I Routine 04/04/2018 1:18 ESRD (end stage renal Results for this WITH REFLEX TO PM ERADICATOR disease) on dialysis procedure are in ANTIBODY (HCC) the results SPECIFICITY Patient awaiting renal section. transplant STRESS ECHO WITH Routine 04/04/2018 10:17 ESRD (end stage renal Results for this CONTRAST & TRACING AM ERADICATOR disease) on dialysis procedure are in (HCC) the results Diabetic nephropathy section. associated with other specified diabetes mellitus (HCC) PVD (peripheral vascular disease) (HCC) Pre-transplant evaluation for chronic kidney disease Blindness of left eye Obesity (BMI 30-39.9) Hyperlipidemia, unspecified hyperlipidemia type Hypertension, unspecified type FLOW PRA CLASS II Routine 02/01/2018 11:51 ESRD (end stage renal Results for this WITH REFLEX TO AM CDT disease) on dialysis procedure are in ANTIBODY (HCC) the results SPECIFICITY Patient awaiting renal section. transplant FLOW PRA CLASS I Routine 02/01/2018 11:51 ESRD (end stage renal Results for this WITH REFLEX TO AM CDT disease) on dialysis procedure are in ANTIBODY (HCC) the results SPECIFICITY Patient awaiting renal section. transplant after 11/17/2017 Results FLOW PRA CLASS II WITH REFLEX TO ANTIBODY SPECIFICITY (11/04/2018 12:29 PM CDT) Only the most recent of4 resultswithin the time period is included. Flow Class II Percent Positive 0 [facility] Flow Class Report Comments [facility] Specimen Blood Narrative Performed At Disclaimer: [facility] This test was developed and its performance characteristics determined by the [facility]. It has not been cleared or approved by the U.S. Food and Drug Administration. The FDA has determined that such clearance or approval is not necessary. This test is used for clinical purposes. It should not be regarded as investigational or for research. This laboratory is certified under the Clinical Laboratory Improvement Amendments of 1988 (CLIA-88) as qualified to perform high complexity clinical laboratory testing. Performing Organization Address City/State/Zipcode Phone Number [facility], [place]: [place] [address] [id number], CLIA#[id number] CAP#[id number] UNOS#[id number] FLOW PRA CLASS I WITH REFLEX TO ANTIBODY SPECIFICITY (11/04/2018 12:29 PM CDT) Only the most recent of4 resultswithin the time period is included. Flow Class I Percent Positive 7 [facility] Flow Class Report Comments [facility] Specimen Blood Narrative Performed At Disclaimer: [facility] This test was developed and its performance characteristics determined by the [facility]. It has not been cleared or approved by the U.S. Food and Drug Administration. The FDA has determined that such clearance or approval is not necessary. This test is used for clinical purposes. It should not be regarded as investigational or for research. This laboratory is certified under the Clinical Laboratory Improvement Amendments of 1988 (CLIA-88) as qualified to perform high complexity clinical laboratory testing. Performing Organization Address City/State/[facility] Phone Number [facility] [address] [place], [place]: [place] [address] [id number], CLIA#[id number] CAP#[id number] UNOS#[id number] AB SPECIFICITY CLASS I (11/04/2018 12:29 PM CDT) AB Specificity Class I B:44:02 [facility] AB Specificity Titr Class Report MFIs > 4000 [facility] Specimen Blood Narrative Performed At Disclaimer: [facility] This test was developed and its performance characteristics determined by the [facility]. It has not been cleared or approved by the U.S. Food and Drug Administration. The FDA has determined that such clearance or approval is not necessary. This test is used for clinical purposes. It should not be regarded as investigational or for research. This laboratory is certified under the Clinical Laboratory Improvement Amendments of 1988 (CLIA-88) as qualified to perform high complexity clinical laboratory testing. Performing Organization Address City/State/[facility] Phone Number [facility] [address] [place], [place]: [place] [address] [id number], CLIA#[id number] CAP#[id number] UNOS#[id number] PERIPHERAL VASCULAR REPORT - SCAN (04/15/2018 2:20 PM ERADICATOR)Only the most recent of2 resultswithin the time period is included. Narrative Performed At STRESS ECHO With Contrast & Tracing (04/04/2018 10:17 AM ERADICATOR) Ejection Fraction [facility] Specimen Narrative Performed At Stress Echocardiography Report [facility] Demographics Patient NameALBA COOLEY Date of Study04/04/2018 YULIYA Gender Female Visit [id number] Race NumberOP Number Date of 1975 Radha umana Age 42 year(s) Sathish Gonzalez, CS Interpreting Jt Chino MD Physician FellowNila Euceda MD Procedure Type of Study Stress procedure:STRESS ECHO/TMT W/DOP&TRAC (Routine) Indications:Pre-surgical evaluation of organ transplant. Clinical History ESRD, DM, PVD, HLD, HTN, Obesity Height: 70 inches Weight: 113.4 kg (250 lbs) BSA: 2.29 m^2 BMI: 35.87 kg/m^2 HR: 77 bpm BP: 122/70 mmHg Rest ECG Normal sinus rhythm Standing HR:82 bpmStanding BP:122/70 mmHg Stress Stress Type: Pharmacologic Peak HR: 155 bpm HR Response: Normal Peak BP: 166/56 mmHg BP Response: Normal Predicted HR: 178 bpm HR BP Product: 59005 % of predicted HR: 87 Max Infusion: 40 mcg/kg/min Test Duration: 38:30 min Reason for Termination: Target heart rate Stress Interpretation Target heart rate was achieved. All segments contract normally at baseline and at all stages of stress. Appropriate augmentation of LV function to escalating doses of dobutamine. Appropriate blood pressure response to escalating doses of dobutamine. Results Global LVEF (rest): Normal (LVEF >50%) Global LVEF (stress): Normal (LVEF >50%) ECG Sinus rhythm; <1mm ST depressions. Arrhythmias No significant rhythm abnormality during stress or recovery. Symptoms No symptoms during stress test. Stress Protocol: Pharmacologic - Dobutamine +--------+-----+------+ +------+-----+--- -----+--+--------+----+------+ !Stage # !Time !Dosage!Other !Dosage!Heart!Blood !CP!Pain!Pain!Pain! !! !!Medication!!Rate !Pressure!!Location!Type!Action! +--------+-----+------+ +------+-----+--- -----+--+--------+----+------+ !1.0 !03:30!10.00 !!!99 !166/56!!!! ! +--------+-----+------+ +------+-----+--- -----+--+--------+----+------+ !2.0 !06:30!20.00 !!!125!153/43 !!!!! +--------+-----+------+ +------+-----+--- -----+--+--------+----+------+ !3.0 !09:30!30.00 !!!131!124/37 !!!!! +--------+-----+------+ +------+-----+--- -----+--+--------+----+------+ !4.0 !23:30!40.00 !!!155!104/43 !!!!! +--------+-----+------+ +------+-----+--- -----+--+--------+----+------+ !7.0 ! !!Atropine!0.50! !!!!! ! +--------+-----+------+ +------+-----+--- -----+--+--------+----+------+ !Recovery!38:30!!! !109!98/61 !!!!! +--------+-----+------+ +------+-----+--- -----+--+--------+----+------+ Summary This is a negative Echocardiographic Stress Test. Signature Findings Technical Quality: Technically adequate exam. Rhythm/BP Regular sinus rhythm during the exam. LeftLV endocardium is well visualized with IV ultrasound Ventricle enhancing agent. The left ventricle is chamber size (by vol index) is normal (female - LVED vol - 29-61ml/m2). Normal LV wall thickness. All of the LV segments contract normally . LVEF by Ruiz's method of disk assessment is normal (55-60%) . Left Atrium Normal size left atrium. Right Normal right ventricle structure and function. Ventricle Right AtriumNormal right atrium. Aortic ValveNormal aortic valve structure and function. Mitral ValveNormal mitral valve structure and function. Tricuspid Normal tricuspid valve structure. Valve A trace of tricuspid regurgitation. Estimated peak systolic PA pressure is 25-30 mmHg + RA pressure. Aorta The aortic root is normal size at the Sinus of Valsalva. Chambers/Structures Left Atrium LA Volume: 43.59 ml LA Area: 16.78 cm^2 LA Vol. Index: 19 ml/m^2 Left Ventricle LVIDd: 4.71 cm LVIDs: 3.24 cm LV Septum Diastolic: 0.91 cm LV PW Diastolic: 0.85 cmLV FS: 31.2 % LVEDV Ruiz's:92.21 ml LVESV Ruiz's:34.69 mlLVEDVI: 40 ml/m^2 LVEF Ruiz's: 62.4 %LVESV I: 15 ml/m^2 LVOT Diameter: 2.01 cm Aorta Ao Root S of Renu.: 2.17 cm Doppler/Quantitative Measurements Aortic Valve Peak Velocity: 1.39 m/sMean Velocity: 0.95 m/s Peak Gradient: 7.73 mmHg Mean Gradient: 3.97 mmHg AV Area (continuity): 2.79 cm^2 AV VTI: 26.55 cm AV DVI: 0.88 LVOT Peak Velocity: 1.19 m/s Peak Gradient: 5.62 mmHg Mean Velocity: 0.76 m/s Mean Gradient: 2.66 mmHg LVOT Diameter: 2.01 cmLVOT VTI: 23.36 cm LVOT Area: 3.17 cm^2LVOT SV:74.09 ml LVOT CO: 5.7 l/minLVOT CI: 2.49 l/min/m^2 Tricuspid Valve TR Velocity: 2.56 m/s TR Gradient: 26.26 mmHg Procedure Note Interface, External Ris In - 04/15/2018 2:00 PM ERADICATOR Stress Echocardiography Report Demographics Patient Name ALBA COOLEY Date of Study 04/04/2018 YULIYA Gender Female Visit Number [id number] Race Room Number OP Number Date of 1975 Referring Best Sebastián Physician Lakhwinder Age 42 year(s) 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 Clinical History ESRD, DM, PVD, HLD, HTN, Obesity Height: 70 inches Weight: 113.4 kg (250 lbs) BSA: 2.29 m^2 BMI: 35.87 kg/m^2 HR: 77 bpm BP: 122/70 mmHg Rest ECG Normal sinus rhythm Standing HR:82 bpmStanding BP:122/70 mmHg Stress Stress Type: Pharmacologic Peak HR: 155 bpm HR Response: Normal Peak BP: 166/56 mmHg BP Response: Normal Predicted HR: 178 bpm HR BP Product: 71075 % of predicted HR: 87 Max Infusion: 40 mcg/kg/min Test Duration: 38:30 min Reason for Termination: Target heart rate Stress Interpretation Target heart rate was achieved. All segments contract normally at baseline and at all stages of stress. Appropriate augmentation of LV function to escalating doses of dobutamine. Appropriate blood pressure response to escalating doses of dobutamine. Results Global LVEF (rest): Normal (LVEF >50%) Global LVEF (stress): Normal (LVEF >50%) ECG Sinus rhythm; <1mm ST depressions. Arrhythmias No significant rhythm abnormality during stress or recovery. Symptoms No symptoms during stress test. Stress Protocol: Pharmacologic - Dobutamine +--------+-----+------+ +------+-----+--------+--+--------+----+------ + !Stage # !Time !Dosage!Other !Dosage!Heart!Blood !CP!Pain !Pain!Pain ! ! ! ! !Medication! !Rate !Pressure! !Location!Type!Action ! +--------+-----+------+ +------+-----+--------+--+--------+----+------ + !1.0 !03:30!10.00 ! ! !99 !166/56 ! ! ! ! ! +--------+-----+------+ +------+-----+--------+--+--------+----+------ + !2.0 !06:30!20.00 ! ! !125 !153/43 ! ! ! ! ! +--------+-----+------+ +------+-----+--------+--+--------+----+------ + !3.0 !09:30!30.00 ! ! !131 !124/37 ! ! ! ! ! +--------+-----+------+ +------+-----+--------+--+--------+----+------ + !4.0 !23:30!40.00 ! ! !155 !104/43 ! ! ! ! ! +--------+-----+------+ +------+-----+--------+--+--------+----+------ + !7.0 ! ! !Atropine !0.50 ! ! ! ! ! ! ! +--------+-----+------+ +------+-----+--------+--+--------+----+------ + !Recovery!38:30! ! ! !109 !98/61 ! ! ! ! ! +--------+-----+------+ +------+-----+--------+--+--------+----+------ + Summary This is a negative Echocardiographic Stress Test. Signature Findings Technical Quality: Technically adequate exam. Rhythm/BP Regular sinus rhythm during the exam. Left LV endocardium is well visualized with IV ultrasound Ventricle enhancing agent. The left ventricle is chamber size (by vol index) is normal (female - LVED vol - 29-61ml/m2). Normal LV wall thickness. All of the LV segments contract normally . LVEF by Ruiz's method of disk assessment is normal (55-60%) . Left Atrium Normal size left atrium. Right Normal right ventricle structure and function. Ventricle Right Atrium Normal right atrium. Aortic Valve Normal aortic valve structure and function. Mitral Valve Normal mitral valve structure and function. Tricuspid Normal tricuspid valve structure. Valve A trace of tricuspid regurgitation. Estimated peak systolic PA pressure is 25-30 mmHg + RA pressure. Aorta The aortic root is normal size at the Sinus of Valsalva. Chambers/Structures Left Atrium LA Volume: 43.59 ml LA Area: 16.78 cm^2 LA Vol. Index: 19 ml/m^2 Left Ventricle LVIDd: 4.71 cm LVIDs: 3.24 cm LV Septum Diastolic: 0.91 cm LV PW Diastolic: 0.85 cm LV FS: 31.2 % LVEDV Ruiz's:92.21 ml LVESV Ruiz's:34.69 ml LVEDVI: 40 ml/m^2 LVEF Ruiz's: 62.4 % LVESVI: 15 ml/m^2 LVOT Diameter: 2.01 cm Aorta Ao Root S of Renu.: 2.17 cm Doppler/Quantitative Measurements Aortic Valve Peak Velocity: 1.39 m/s Mean Velocity: 0.95 m/s Peak Gradient: 7.73 mmHg Mean Gradient: 3.97 mmHg AV Area (continuity): 2.79 cm^2 AV VTI: 26.55 cm AV DVI: 0.88 LVOT Peak Velocity: 1.19 m/s Peak Gradient: 5.62 mmHg Mean Velocity: 0.76 m/s Mean Gradient: 2.66 mmHg LVOT Diameter: 2.01 cm LVOT VTI: 23.36 cm LVOT Area: 3.17 cm^2 LVOT SV:74.09 ml LVOT CO: 5.7 l/min LVOT CI: 2.49 l/min/m^2 Tricuspid Valve TR Velocity: 2.56 m/s TR Gradient: 26.26 mmHg Performing Organization Address City/State/Zipcode Phone Number [facility] [employer] [id number] after 11/17/2017 Insurance Payer Benefit Plan / Group Subscriber ID Type Phone Address MEDICARE MEDICARE A B xxxxxxxxxxx Medicare
--- OUTSIDE RECORDS SUMMARY | 2018-11-18 12:19 | XMS REPORT ---
:1975 Author Organization [facility] Address [address] [place] [id number] Care Team Providers Name Role Phone CHIP GOMEZ Unavailable Unavailable Problems This patient has no known problems. Allergies, Adverse Reactions, Alerts This patient has no known allergies or adverse reactions. Medications This patient has no known medications. Results Test Description Test Time Test Comments Text Results Atomic Results Result Comments OCCULT BLOOD, STOOL 2017-03-20 13:18:00 Test Item Value Reference Range Comments FECAL OCCULT BLOOD (BEAKER) (test jzwr=178) Negative Negative OCCULT BLOOD, [id number] 13:18:00 Test Item Value Reference Range Comments FECAL OCCULT BLOOD (BEAKER) (test ajji=109) Negative Negative CT, CTA AAA, W/ DUY.[id number] 16:59:00Reason for Exam:->esrd; eval for renal txp; PVD; please examine pelvis to toes PLEASE EXAMINE PELVIS TO TOES [facility] HospitalAddendum BeginsREPORT STATUS :A Addendum: I agree with the previously described non vascular findings. Signed: Cheo Engel MDReport Verified Date/Time: 2016 16:59:09 Reading Location: [facility] B1 P048 Angio Body Reading RoomAddendum EndsFINAL [...] is seen and no atherosclerosis is identified. Needle Loom Setter dimensions of the left and right external iliac artery is approximately 6 mm. Similarly, in the delayed images, the pelvic veins are seen to be patent, bilaterally and no venous thrombosis is seen and no narrowing is identified. Needle Loom Setter dimension of the left and the right [...] no arterial stenosis or venous thrombosis identified. Needle Loom Setter dimensions of the left and right external [...] An addendum will be dictated by the [place] Radiologist regarding the nonvascular findings. Signed: Dc Ramos MDReport Verified Date/Time: 02/27/2017 13:19:48 Reading Location: [place] [address] Cardiology MRI URINALYSIS W/ [id number] 15:39:00 Test Item Value Reference Range Comments COLOR (BEAKER) (test kdsi=124) Yellow CLARITY (BEAKER) (test iylk=710) Cloudy SPECIFIC GRAVITY UA (BEAKER) (test tmyu=446) 1.010 1.001-1.035 PH UA (BEAKER) (test ytgu=703) 8.5 5.0-8.0 PROTEIN UA (BEAKER) (test mpwf=447) 300 mg/dL Negative GLUCOSE UA (BEAKER) (test ikdi=976) 100 mg/dL Negative KETONES UA (BEAKER) (test bvey=021) Negative Negative BILIRUBIN UA (BEAKER) (test optb=179) Negative Negative BLOOD UA (BEAKER) (test uqfi=287) Negative Negative NITRITE UA (BEAKER) (test ufxh=174) Negative Negative LEUKOCYTE ESTERASE UA (BEAKER) (test uhvi=807) Moderate Negative UROBILINOGEN UA (BEAKER) (test dtts=389) 0.2 mg/dL 0.2-1.0 RBC UA (BEAKER) (test fsaz=180) 2 /HPF WBC UA (BEAKER) (test tsro=850) 15 /HPF BACTERIA (BEAKER) (test trbe=621) Few SQUAMOUS EPITHELIAL (BEAKER) (test lrnm=751) 78 /HPF SOURCE(BEAKER) (test qgck=2826) HEMOGLOBIN [id number] 19:27:00 Test Item Value Reference Range Comments HEMOGLOBIN A1C (BEAKER) (test sudl=606) 6.1 % 4.3-6.1 URINALYSIS W/ REFLEX URINE [id number] 16:05:00 Test Item Value Reference Range Comments COLOR (BEAKER) (test akvr=326) Yellow CLARITY (BEAKER) (test lxky=907) Hazy SPECIFIC GRAVITY UA (BEAKER) (test tsnl=856) 1.010 1.001-1.035 PH UA (BEAKER) (test gfqs=242) 8.5 5.0-8.0 PROTEIN UA (BEAKER) (test uxrz=995) 300 mg/dL Negative GLUCOSE UA (BEAKER) (test mwyv=627) 100 mg/dL Negative KETONES UA (BEAKER) (test mopz=289) Negative Negative BILIRUBIN UA (BEAKER) (test gfzo=150) Negative Negative BLOOD UA (BEAKER) (test byrn=492) Negative Negative NITRITE UA (BEAKER) (test pzse=006) Negative Negative LEUKOCYTE ESTERASE UA (BEAKER) (test fjym=800) Moderate Negative UROBILINOGEN UA (BEAKER) (test neiu=029) 0.2 mg/dL 0.2-1.0 RBC UA (BEAKER) (test otfk=055) 0 /HPF WBC UA (BEAKER) (test mirp=315) 22 /HPF BACTERIA (BEAKER) (test uhma=417) Rare SQUAMOUS EPITHELIAL (BEAKER) (test amng=916) 6 /HPF SOURCE(BEAKER) (test feqb=4573) AB SPECIFICITY CLASS [id number] 12:27:00 Test Item Value Reference Range Comments DATE OF SERUM (BEAKER) (test rfbi=9824) [id number] SERUM # (BEAKER) (test zzes=0833) [id number] AB SPECIFICITY CLASS I (BEAKER) (test See Scanned Report ezrk=1153) HLA [id number] 15:00:00 Test Item Value Reference Range Comments HLA RESULT (BEAKER) (test qxfs=1817) See Scanned Report HLA-A AG1 (BEAKER) (test fvso=3471) HLA-A AG2 (BEAKER) (test zkkm=0748) HLA-B AG1 (BEAKER) (test rwlw=5558) HLA-B AG2 (BEAKER) (test mnyp=6539) HLA-C AG1 (BEAKER) (test odgl=1005) HLA-C AG2 (BEAKER) (test pkjg=5300) HLA-DR AG1 (BEAKER) (test ccau=6198) HLA-DR AG2 (BEAKER) (test ajts=1427) HLA-DQ AG1 (BEAKER) (test izsj=3743) HLA-DQ AG2 (BEAKER) (test mkwd=9127) HLA-DRW (BEAKER) (test iaun=4366) FLOW PRA CLASS I AND [id number] 14:59:00 Test Item Value Reference Range Comments DATE OF SERUM (FESTUS) (test fxqj=4863) [id number] SERUM # (FESTUS) (test ekyz=6397) [id number] FLOW PRA CLASS I AND II (test ldyk=3752) See Scanned Report URINE [id number] 12:34:00 Test Item Value Reference Range Comments CULTURE (FESTUS) (test kbxo=4327) >100,000 col/mL skin chalino CYTOMEGALOVIRUS ANTIBODY, [id number] 17:38:00 Test Item Value Reference Range Comments CYTOMEGALOVIRUS IGG ANTIBODY (BEAKER) (test Negative ryns=503) CYTOMEGALOVIRUS ANTIBODY, [id number] 17:38:00 Test Item Value Reference Range Comments CYTOMEGALOVIRUS IGM ANTIBODY (BEAKER) (test Negative szma=189) EBV-VCA ANTIBODY, [id number] 17:38:00 Test Item Value Reference Range Comments DIANE-FUENTES VCA IGG (LingoLive) (test viro=759) Positive EBV-VCA ANTIBODY, [id number] 17:38:00 Test Item Value Reference Range Comments DIANE-FUENTES VCA IGM (BEAKER) (test ntxo=585) Negative VARICELLA ZOSTER ANTIBODY, [id number] 17:24:00 Test Item Value Reference Range Comments VARICELLA ZOSTER IGG (AL) (KingdeeAKER) (test qwky=8039) 3.0 Al VARICELLA ZOSTER RESULT INTERPRETATIONS: <=0.8 Al Nonreactive: Presumed non-immune to VZV 0.9-1.0 Al Equivocal >=1.1 Al Reactive: Presumed immune to [id number] 13:58:00 Test Item Value Reference Range Comments RPR SCREEN (KingdeeJUNAID) (test fhzl=613) Nonreactive Nonreactive HEPATITIS B SURFACE [id number] 09:42:00 Test Item Value Reference Range Comments HEPATITIS B SURFACE ANTIGEN (2) ([employer]ingoLive) (test Nonreactive Nonreactive eusv=3277) HEPATITIS B SURFACE [id number] 09:42:00 Test Item Value Reference Range Comments HEPATITIS B SURFACE ANTIBODY (BEAKER) (test 226.3 mIU/mL <8.0 jevv=755) HEPATITIS B CORE ANTIBODY, [id number] 09:42:00 Test Item Value Reference Range Comments HEPATITIS B CORE IGM ANTIBODY (BEAKER) (test Nonreactive Nonreactive bpow=073) HEPATITIS C [id number] 09:42:00 Test Item Value Reference Range Comments HEPATITIS C ANTIBODY (BEAKER) (test cepz=962) Nonreactive Nonreactive HIV-1 ANTIGEN WITH HIV-1/2 [id number] 09:42:00 Test Item Value Reference Range Comments HIV-1 ANTIGEN WITH HIV 1\T\2 ANTIBODY (2) Nonreactive Nonreactive (BEAKER) (test zoff=3837) PTH, [id number] 09:09:00 Test Item Value Reference Range Comments PARATHYROID HORMONE INTACT (BEAKER) (test 583.0 pg/mL 8.5-72.5 uihn=271) Effective 03/17/2014: Reference Range ChangeNew: 8.5-72.5 Previous: 15.0- 90.0CBC W/PLT COUNT & AUTO [id number] 09:07:00 Test Item Value Reference Range Comments WHITE BLOOD CELL COUNT (BEAKER) (test iuha=957) 8.6 K/ L 4.0-10.0 RED BLOOD CELL COUNT (BEAKER) (test dofn=241) 3.36 M/ L 4.00-5.00 HEMOGLOBIN (BEAKER) (test ipyn=028) 11.4 GM/DL 12.0-15.0 HEMATOCRIT (BEAKER) (test igtc=467) 34.1 % 36.0-45.0 MEAN CORPUSCULAR VOLUME (BEAKER) (test mebh=621) 102.0 fL 82.0-99.0 MEAN CORPUSCULAR HEMOGLOBIN (BEAKER) (test 34.0 pg 27.0-33.0 snxs=680) MEAN CORPUSCULAR HEMOGLOBIN CONC (BEAKER) (test 33.4 GM/DL 32.0-36.0 khuo=827) RED CELL DISTRIBUTION WIDTH (BEAKER) (test 12.8 % 10.3-14.2 vwoa=640) PLATELET COUNT (BEAKER) (test oqvc=282) 289 K/CU MM 150-430 MEAN PLATELET VOLUME (BEAKER) (test elzp=095) 9.1 fL 6.5-10.5 NUCLEATED RED BLOOD CELLS (BEAKER) (test 0 /100 WBC 0-0 pmwt=403) NEUTROPHILS RELATIVE PERCENT (BEAKER) (test 68 % pizv=933) LYMPHOCYTES RELATIVE PERCENT (BEAKER) (test 18 % ajue=181) MONOCYTES RELATIVE PERCENT (BEAKER) (test 9 % aegy=483) EOSINOPHILS RELATIVE PERCENT (BEAKER) (test 4 % wwnw=890) BASOPHILS RELATIVE PERCENT (BEAKER) (test 1 % tjvu=197) NEUTROPHILS ABSOLUTE COUNT (BEAKER) (test 5.81 K/ L 1.80-8.00 tead=167) LYMPHOCYTES ABSOLUTE COUNT (BEAKER) (test 1.56 K/ L 1.48-4.50 guob=699) MONOCYTES ABSOLUTE COUNT (BEAKER) (test 0.73 K/ L 0.00-1.30 zrem=241) EOSINOPHILS ABSOLUTE COUNT (BEAKER) (test 0.38 K/ L 0.00-0.50 lxhk=866) BASOPHILS ABSOLUTE COUNT (BEAKER) (test 0.06 K/ L 0.00-0.20 angf=655) 0.00COMPREHENSIVE METABOLIC [id number] 09:05:00 Test Item Value Reference Range Comments TOTAL PROTEIN (BEAKER) 8.5 gm/dL 6.0-8.3 (test rsjm=704) ALBUMIN (BEAKER) (test 4.1 g/dL 3.5-5.0 smoo=8678) ALKALINE PHOSPHATASE 111 U/L 40-150 (BEAKER) (test vqrs=436) BILIRUBIN TOTAL (BEAKER) 0.5 mg/dL 0.2-1.2 (test bkyg=480) SODIUM (BEAKER) (test 140 meq/L 136-145 ogll=259) POTASSIUM (BEAKER) (test 4.4 meq/L 3.5-5.1 fxch=371) CHLORIDE (BEAKER) (test 92 meq/L 98-107 qoab=203) CO2 (BEAKER) (test 31 meq/L 22-29 zoma=382) BLOOD UREA NITROGEN 34 mg/dL 7-21 (BEAKER) (test koko=704) CREATININE (BEAKER) (test 7.06 mg/dL 0.57-1.25 rzfh=639) GLUCOSE RANDOM (BEAKER) 109 mg/dL 70-105 (test cbve=600) CALCIUM (BEAKER) (test 9.5 mg/dL 8.4-10.2 zrsd=320) AST (SGOT) (BEAKER) (test 16 U/L 5-34 awjx=798) ALT (SGPT) (BEAKER) (test 13 U/L 6-55 dqzb=665) EGFR (BEAKER) (test 6 mL/min/1.73 sq m ESTIMATED GFR IS NOT hvnr=9912) ACCURATE CREATININE CLEARANCE IN PREDICTING GLOMERULAR FILTRATION RATE. ESTIMATED GFR IS NOT APPLICABLE FOR DIALYSIS PATIENTS. URIC [id number] 09:04:00 Test Item Value Reference Range Comments URIC ACID (BEAKER) (test xdmi=978) 5.3 mg/dL 2.6-7.2 [id number] 09:04:00 Test Item Value Reference Range Comments PHOSPHORUS (BEAKER) (test gthu=890) 4.8 mg/dL 2.3-4.7 LIPID [id number] 09:04:00 Test Item Value Reference Range Comments TRIGLYCERIDES (BEAKER) (test nybo=986) 214 mg/dL CHOLESTEROL (BEAKER) (test tkxs=237) 192 mg/dL HDL CHOLESTEROL (BEAKER) (test zsjz=040) 41 mg/dL LDL CHOLESTEROL CALCULATED (BEAKER) (test 108 mg/dL lpgb=918) Triglyceride Reference Range: Low Risk <150 Borderline [...] Range Comments GAMMA GLUTAMYL TRANSFERASE (BEAKER) (test xhpl=679) 11 U/L 9-64 LACTATE DEHYDROGENASE (LDH)2016-07-25 09:04:00 Test Item Value Reference Range Comments LACTATE DEHYDROGENASE (BEAKER) (test hlda=968) 346 U/L 125-220 [id number] 08:56:00 Test Item Value Reference Range Comments PROTIME (BEAKER) (test uesq=476) 13.6 seconds 11.7-14.7 INR (BEAKER) (test vajc=514) 1.1 <=5.9 PARTIAL THROMBOPLASTIN TIME (BEAKER) (test 34.9 seconds 22.5-36.0 fkcn=814) RECOMMENDED COUMADIN/WARFARIN INR THERAPY RANGESSTANDARD DOSE: 2.0 - 3.0 Includes: PROPHYLAXIS forvenous thrombosis, systemic embolization; TREATMENT for venous thrombosis and/or pulmonary embolus.HIGH RISK: Target INR is 2.5-3.5 for patients with mechanical heart valves.
--- NOTE | 2018-11-18 12:30 | ER ---
Nurse's Notes [facility] Name: Alba Aldridge Age: 43 yrs Sex: Female : 1975 Arrival Date: 11/18/2018 Time: 11:50 Bed 18 Private MD: Kelli Schmid Diagnosis: Acute pressure ulcer to left dorsal great toe Presentation: 11/18 12:00 Presenting complaint: Patient states: "I have a left leg cast and it's rubbing against aa5 my toes and giving me a sore". Transition of care: patient was not received from another setting of care. Onset of symptoms was October 2018. Risk Assessment: Do you want to hurt yourself or someone else? Patient reports no desire to harm self or others. Initial Sepsis Screen: Does the patient meet any 2 criteria? No. Patient's initial sepsis screen is negative. Does the patient have a suspected source of infection? No. Patient's initial sepsis screen is negative. Care prior to arrival: None. 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 - Social history:: Smoking status: Patient/guardian denies using tobacco. - Ebola Screening: : No symptoms or risks identified at this time. Screenin:00 Abuse screen: Denies threats or abuse. Nutritional screening: No deficits noted. ae4 Tuberculosis screening: No symptoms or risk factors identified. Fall Risk None identified. No fall in past 12 months (0 pts). Assessment: 12:15 General: Appears in no apparent distress. comfortable, Behavior is calm, cooperative, ae4 appropriate for age. Pain: Complains of pain in dorsum of left foot, left first toe, left second toe, left third toe, left fourth toe, left fifth toe and left leg. Neuro: Level of Consciousness is awake, alert, obeys commands, Oriented to person, place, time, situation, Appropriate for age. Cardiovascular: Patient's skin is warm and dry. Respiratory: Airway is patent Respiratory effort is even, unlabored, Respiratory pattern is regular. GI: No signs and/or symptoms were reported involving the gastrointestinal system. : No signs and/or symptoms were reported regarding the genitourinary system. EENT: No signs and/or symptoms were reported regarding the EENT system. Derm: Wound noted left foot, lateral aspect of left calf, left lateral ankle, lateral aspect of left foot, left calf, left Achilles, left heel, medial aspect of left calf, left medial ankle, medial aspect of left foot, left rice, anterior aspect of left ankle and dorsum of left foot Other: Cast applied. Skin is reddened and dry to dorsal side of left foot. Musculoskeletal: cast applied to left lower extremity. Vital Signs: 12:02 BP 165 / 79; Pulse 88; Resp 18 S; Temp 97.6(TE); Pulse Ox 100% on R/A; Weight 113.4 kg aa5 (R); Height 5 ft. 10 in. (177.80 cm) (R); Pain 0/10; 12:02 Body Mass Index 35.87 (113.40 kg, 177.80 cm) aa5 ED Course: 11:50 Patient arrived in ED. as 11:51 Kelli Schmid MD is Private Physician. as 12:00 Arm band placed on. aa5 12:00 Bed in low position. Call light in reach. Side rails up X 1. Adult w/ patient. Pulse ox ae4 on. NIBP on. 12:01 Triage completed. aa5 12:10 Elsie Delacruz FNP-C [facility]. snw 12:10 Damian Reina MD is Attending Physician. snw 12:19 Georges Domignuez, AZUL is Primary Nurse. ae4 12:50 Dressings: non-adherent dressing x 2 lateral aspect of left foot Xeroform x2 to left ae4 dorsal side of foot. 13:00 No provider procedures requiring assistance completed. Patient did not have IV access ae4 during this emergency room visit. Administered Medications: 12:42 Drug: Clindamycin 300 mg Route: PO; ae4 12:49 Follow up: Response: Medication administered at discharge. ae4 Outcome: 12:29 Discharge ordered by . snw 12:54 Patient left the ED. ae4 19:25 Discharged to home ambulatory, with family. ae4 19:25 Condition: stable 19:25 Discharge instructions given to patient, Instructed on discharge instructions, follow up and referral plans. Demonstrated understanding of instructions. Signatures: Elsie Delacruz, HOME CARE ASSOCIATE-C HOME CARE ASSOCIATE-Csnw Lindy Culp Audri, RN RN aa5 Georges Dominguez RN RN ae4
--- NOTE | 2018-11-18 12:31 | EDPHYS ---
Physician Documentation [facility] Name: Alba Aldridge Age: 43 yrs Sex: Female : 1975 Arrival Date: 11/18/2018 Time: 11:50 Bed 18 Private MD: Kelli Schmid ED Physician Damian Reina HPI: 11/18 12:27 This 43 yrs old Female presents to ER via Ambulatory with complaints of Wound snw Check. 12:27 Patient presents to ED for recheck of: cellulitis. Previous treatment: cast material snw placed to left lower ext from fx ankle no Tues of last week, dorsal great toe rubbed raw from material. The patient has not experienced similar symptoms in the past. The patient has been recently seen by a physician: Leona in [facility]. 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 - Social history:: Smoking status: Patient/guardian denies using tobacco. - Ebola Screening: : No symptoms or risks identified at this time. ROS: 12:19 Constitutional: Negative for fever, chills, and weight loss, Eyes: Negative for injury, snw pain, redness, and discharge, ENT: Negative for injury, pain, and discharge, Neck: Negative for injury, pain, and swelling, Cardiovascular: Negative for chest pain, palpitations, and edema, Respiratory: Negative for shortness of breath, cough, wheezing, and pleuritic chest pain, Abdomen/GI: Negative for abdominal pain, nausea, vomiting, diarrhea, and constipation, Back: Negative for injury and pain, : Negative for injury, bleeding, discharge, and swelling, MS/Extremity: Negative for injury and deformity, Neuro: Negative for headache, weakness, numbness, tingling, and seizure, Psych: Negative for depression, anxiety, suicide ideation, homicidal ideation, and hallucinations. 12:19 Skin: Positive for ulceration, at great toe second to cast material. Exam: 12:19 Constitutional: This is a well developed, well nourished patient who is awake, alert, snw and in no acute distress. Head/Face: Normocephalic, atraumatic. Eyes: Pupils equal round and reactive to light, extra-ocular motions intact. Lids and lashes normal. Conjunctiva and sclera are non-icteric and not injected. Cornea within normal limits. Periorbital areas with no swelling, redness, or edema. ENT: Nares patent. No nasal discharge, no septal abnormalities noted. Tympanic membranes are normal and external auditory canals are clear. Oropharynx with no redness, swelling, or masses, exudates, or evidence of obstruction, uvula midline. Mucous membranes moist. Neck: Trachea midline, no thyromegaly or masses palpated, and no cervical lymphadenopathy. Supple, full range of motion without nuchal rigidity, or vertebral point tenderness. No Meningismus. Chest/axilla: Normal chest wall appearance and motion. Nontender with no deformity. No lesions are appreciated. Cardiovascular: Regular rate and rhythm with a normal S1 and S2. No gallops, murmurs, or rubs. Normal PMI, no JVD. No pulse deficits. Respiratory: Lungs have equal breath sounds bilaterally, clear to auscultation and percussion. No rales, rhonchi or wheezes noted. No increased work of breathing, no retractions or nasal flaring. Abdomen/GI: Soft, non-tender, with normal bowel sounds. No distension or tympany. No guarding or rebound. No evidence of tenderness throughout. Back: No spinal tenderness. No costovertebral tenderness. Full range of motion. MS/ Extremity: Pulses equal, no cyanosis. Neurovascular intact. Full, normal range of motion. Neuro: Awake and alert, GCS 15, oriented to person, place, time, and situation. Cranial nerves II-XII grossly intact. Motor strength 5/5 in all extremities. Sensory grossly intact. Cerebellar exam normal. Normal gait. Psych: Awake, alert, with orientation to person, place and time. Behavior, mood, and affect are within normal limits. 12:19 Skin: Appearance: normal except for affected area, injury, abrasion(s), moderate sized abrasion noted, of the left first toe, contusion(s). Vital Signs: 12:02 BP 165 / 79; Pulse 88; Resp 18 S; Temp 97.6(TE); Pulse Ox 100% on R/A; Weight 113.4 kg aa5 (R); Height 5 ft. 10 in. (177.80 cm) (R); Pain 0/10; 12:02 Body Mass Index 35.87 (113.40 kg, 177.80 cm) aa5 MDM: 12:10 Patient medically screened. snw 12:32 Data reviewed: vital signs, nurses notes. Data interpreted: Pulse oximetry: on room air snw is 100 %. Interpretation: normal. Counseling: I had a detailed discussion with the patient and/or guardian regarding: the historical points, exam findings, and any diagnostic results supporting the discharge/admit diagnosis, the presence of at least one elevated blood pressure reading (>120/80) during this emergency department visit, the need for outpatient follow up, to return to the emergency department if symptoms worsen or persist or if there are any questions or concerns that arise at home. Special discussion: I discussed in detail with the patient the higher chance of wound infection based on his presenting history. Based on the history and exam findings, there is no indication for further emergent testing or inpatient evaluation. I discussed with the patient/guardian the need to see the orthopedic surgeon for further evaluation of the symptoms. 11/18 12:32 [place] [facility] [place] anterior portion of cast well; Complete Time: 12:47 snw Administered Medications: 12:42 Drug: Clindamycin 300 mg Route: PO; ae4 12:49 Follow up: Response: Medication administered at discharge. ae4 Disposition: 15:22 Co-signature as Attending Physician, Damian Reina MD. rn Disposition: 11/18/18 12:29 Discharged to Home. Impression: Acute pressure ulcer to left dorsal great toe. - Condition is Stable. - Discharge Instructions: How to Use a Walker, Pressure Injury. - Prescriptions for Clindamycin HCl 300 mg Oral Capsule - take 1 capsule by ORAL route every 6 hours for 10 days; 40 capsule. - Medication Reconciliation Form, Thank You Letter, Antibiotic Education, Prescription Opioid Use form. - Follow up: Private Physician; When: Tomorrow; Reason: Recheck today's complaints, Continuance of care, Re-evaluation by your physician. Follow up: Emergency Department; When: As needed; Reason: Worsening of condition. Signatures: Elsie Delacruz, PHOTONICS ENGINEER-C PHOTONICS ENGINEER-Csnw Damian Reina MD MD rn Milagros Chapman RN RN aa5 Georges Dominguez, RN RN ae4 Corrections: (The following items were deleted from the chart) 12:54 12:29 11/18/2018 12:29 Discharged to Home. Impression: Acute pressure ulcer to left ae4 dorsal great toe. Condition is Stable. Forms are Medication Reconciliation Form, Thank You Letter, Antibiotic Education, Prescription Opioid Use. Follow up: Private Physician; When: Tomorrow; Reason: Recheck today's complaints, Continuance of care, Re-evaluation by your physician. Follow up: Emergency Department; When: As needed; Reason: Worsening of condition. snw
[2018-11-18] MEDS ORDERED: CLINDAMYCIN HCL 150 MG CAP ONE (12:54)
[2018-11-18 13:02] VITALS: BP 165/79; TEMP 97.6; O2SAT 100
== END 2018-11-18 12:54 | disposition home or self-care (01) ==
LOC: ER 11:48
DX: L89.899 Pressure ulcer of other site, unspecified stage (principal); E11.22 Type 2 diabetes mellitus with diabetic chronic kidney disease; N18.6 End stage renal disease; Z99.2 Dependence on renal dialysis
CPT/HCPCS: 99283

== ENCOUNTER 2020-02-15 08:39 | Emergency (ER) | payer OTHER ==
--- OUTSIDE RECORDS SUMMARY | 2020-02-15 08:41 | XMS REPORT | Summary of Care ---
:1975 Author Organization [facility] Address [address] [place] [id number] Care Team Providers Name Role Phone Kelli Schmid Monika Primary Care Provider Reason for Visit Reason Comments Refill Request Encounter Details Date Type Department Care Team Description 02/12/2020 Refill [facility] Endocrinology- Migue Thurman MD Refill Request [address] [address] [address] [place] [address] [place] [address] [phone] Allergies No Known Allergiesdocumented as of this encounter (statuses as of 02/12/2020) Medications Medication Sig Dispensed Refills Start Date End Date Status cloniDINE Take 0.2 mg 0 Active (CATAPRES) 0.2 mg by mouth 2 tablet (two) times daily. Insulin Use as 100 Syringe 1 08/08/2019 Active Syringe-Needle directed, U-100 (BD INSULIN once daily, SYRINGE ULTRA-FINE) DX:E11.8 1 mL 31 gauge x /16 SyrgIndications: Type 2 diabetes mellitus with complication, with long-term current use of insulin insulin glargine inject 20 30 mL 1 08/08/2019 Ac tive (LANTUS U-100 Units under INSULIN) 100 the skin unit/mL daily. injectionIndication s: Type 2 diabetes mellitus with complication, with long-term current use of insulin PIOGLITAZONE 30 mg TAKE 1 90 tablet 0 02/12/2020 Active tabletIndications: TABLET BY Type 2 diabetes MOUTH EVERY mellitus with DAY complication, with long-term current use of insulin pioglitazone 30 mg Take 1 90 tablet 1 08/08/2019 02/12/2020 Discontinued tabletIndications: tablet by Type 2 diabetes mouth daily. mellitus with complication, with long-term current use of insulin documented as of this encounter (statuses as of 02/12/2020) Active Problems Problem Noted Date Obesity (BMI 30-39.9) 07/03/2019 DM (diabetes mellitus) type II controlled with renal m anifestation 07/03/2019 Type 2 diabetes mellitus with complication Overview: dx age 13; on insulin until age [age] th en pills for a couple of years/then back to insulin. 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 Food Insecurity Answer Date Recorded Within the past 12 months, you worried that your food would Never true 07/03/2019 run out before you got money to buy more. Within the past 12 months, the food you bought just didn't N ever true 07/03/2019 last and you didn't have money to get more. Transportation Needs Answer Date Recorded In the past 12 months, has lack of transportation kept you f rom No 07/03/2019 medical appointments or from getting medications? In the past 12 months, has lack of transportation kept you f rom No 07/03/2019 meetings, work, or getting things needed for daily living? Sex Assigned at Date Recorded Not on file documented as of this encounter Last Filed Vital Signs Not on filedocumented in this encounter Miscellaneous Notes Telephone Encounter - Juvenal Cintron MBBS - 02/12/2020 1:10 PM CDTOk to refill Telephone Encounter - Leah Roberts RN - 02/12/2020 12:56 PM CDTPlease advise, NOV: none DIEUDONNE: 08/08/19 Requesting refill on Pioglitazone. Routing to PSS to schedule follow up. documented in this encounter Plan of Treatment Health Maintenance Due Date Last Done Comments PNEUMOCOCCAL 0-64 YEARS COMBINED 1981 SERIES (1 of 3 - PCV13) EYE EXAM 1985 Depression Screening 1987 FOOT EXAM 1993 DTaP,Tdap,and Td Vaccines (1 - 1994 Tdap) PAP SMEAR 1996 LDL-C 11/30/2009 11/30/2008 Breast Cancer Screening 2015 (MAMMOGRAM) INFLUENZA VACCINE (#1) 2019 HgA1C 01/03/2020 07/03/2019, 01/31/2019, 07/19/2018, Additional history exists CREATININE (SERUM) 07/13/2020 07/14/2019, 07/08/2019, 07/03/2019, Additional history exists documented as of this encounter Implants Implanted Type Area Drugless Physician Device Shelf Model / Identifier Expiration Date Ser ial / Lot Epixl TISSUE Left: [id number] 01/29/2024 [id number] / Implanted: Qty: 1 on 07/09/2019 by Mitch Valdovinos DPM at [facility] ([facility]) Foot [id number] / documented as of this encounter Results Not on filedocumented in this encounter Visit Diagnoses Diagnosis Type 2 diabetes mellitus with complicati on, with long-term current use of insulin documented in this encounter Insurance Payer Benefit Plan / Subscriber ID Effective Dates Phone Addre ss Type Group MEDICARE MEDICARE PART [id number] 2001-Selena 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
--- OUTSIDE RECORDS SUMMARY | 2020-02-15 08:41 | XMS REPORT | Clinical Summary ---
:1975 Author Organization [facility] Address [address] [place] [address] Care Team Providers Name Role Phone Mine Schmid MD Primary Care Provider Roxann Granger Referring Physician Allergies No Known Allergies Medications Medication Sig Dispensed Refills Start End Date Status Date cloNIDine HCl Take 0.2 mg by 0 A ctive (CATAPRES) 0.2 mouth 2 (two) MG tablet times daily. pioglitazone Take 30 mg by 0 Act gisella (ACTOS) 30 MG mouth daily. tablet insulin glargine Inject 24 Units 0 Active (LANTUS) 100 subcutaneously unit/mL nightly Use as injection directed . calcium acetate Take 1,336 mg by 0 Active 668 mg (169 mg mouth 3 (three) calcium) Tab times daily with meals . ramipril Take 10 mg by 0 Active (ALTACE) 10 MG mouth daily. capsule sevelamer Take 800 mg by 0 04/10/20 Disco ntinued ( (RENVELA) 800 mg mouth 3 (three) 19 Discontinued) tablet times daily with meals. verapamil HCl Take 10 mg by 0 04/10/20 Di scontinued ( (VERAPAMIL ORAL) mouth daily. 19 Discontinued) Active Problems Problem Noted Date Patient awaiting renal transplant 04/05/2018 Essential hypertension 03/20/2017 Last Assessment & Plan: Blood pressure well controlled on curren t medications. Pre-transplant evaluation for chronic kidney disease 0 12/21/2016 Last Assessment & Plan: Patient to be listed. ESRD (end stage renal disease) on dialysis 12/21/2016 Last Assessment & Plan: To list patient for transplant. Diabetic nephropathy associated with other specified d iabetes mellitus 12/21/2016 Last Assessment & Plan: Has lost sensation in feet/legs. No pain . No intervention at this time. Proliferative diabetic retinopathy of both eyes associ ated with type 2 12/21/2016 diabetes mellitus, unspecified proliferative retinopat hy type Blindness of left eye 12/21/2016 Diabetic polyneuropathy associated with type 2 diabete s mellitus 12/21/2016 PVD (peripheral vascular disease) 12/21/2016 Traumatic amputation of toe, right, sequela 12/21/2016 Obesity (BMI 30-39.9) 12/21/2016 Last Assessment & Plan: Has lost 4 lbs over last month by diet, to continue diet. Encouraged to exercise by walking for at least 20 min 3x a week. Hyperlipidemia, unspecified hyperlipidemia type 2016 Encounters Date Type Specialty Care Team Description 01/14/2020 Documentation Transplant Lori Quiñones 01/02/2020 Telephone Transplant Lori Quiñones Appointment 11/27/2019 Documentation Transplant Lori Quiñones 11/27/2019 Telephone Transplant Lori Quiñones Appointment 11/27/2019 Telephone Transplant Lori Quiñones Appointment 10/16/2019 Documentation Transplant Lori Quiñones 10/15/2019 Documentation Transplant Rebecca Hendrickson RN 10/14/2019 Hospital Encounter Radiology Isauro, Shmuelmed Renal cys ts, acquired, bilateral; Cristofer Martinez MD ESRD (end stage renal disease) on dialysis ([facility]); Type 2 diabetes mellitus with chronic kidney disease on chronic dialysis, unspecified whether long chain dyeing machine operator insulin use ([facility]); Secondary hyper tension; Awaiting transp lantation of kidney 10/14/2019 Hospital Encounter Cardiology Isauro, Shmuelmed Renal cys ts, acquired, bilateral; Cristofer Martinez MD ESRD (end stage renal disease) on dialysis ([facility]); Type 2 diabetes mellitus with chronic kidney disease on chronic dialysis, unspecified whether long chain dyeing machine operator insulin use ([facility]); Secondary hyper tension; Awaiting transp lantation of kidney 08/26/2019 Telephone Transplant Lori Quiñones Appointment 08/14/2019 Telephone Transplant Rebecca Hendrickson, AZUL Waitlist Ma intenance 08/06/2019 Documentation Transplant Sim, Na Y 06/16/2019 Telephone Transplant Lori Quiñones Appointment 06/02/2019 Documentation Transplant Rebecca Hendrickson RN 05/23/2019 Telephone Transplant Lori Quiñones Appointment 05/22/2019 Documentation Transplant Lori Quiñones 05/16/2019 Telephone Transplant Lori Quiñones Appointment 05/13/2019 Orders Only Transplant Rebecca Hendrickson RN 05/07/2019 Orders Only Transplant Rebecca Hendrickson RN Awaiting transplantation of kidney (Primary Dx) 04/11/2019 Orders Only Transplant Rebecca Hendrickson RN Renal cysts , acquired, bilateral (Primary Dx); ESRD (end stage renal disease) on dialysis (HCC); Type 2 diabetes mellitus with chronic kidney disease on chronic dialysis, unspecified whether long chain dyeing machine operator insulin use (HCC); Secondary hyper tension; Awaiting transp lantation of kidney 04/10/2019 Orders Only Transplant Best, Awaiting Hepatology amidipa transplantation of MD Lakhwinder kidney 04/10/2019 Evaluation Transplant Best, Awaiting transp lantation of kidney (Primary Dx); Americaamidjayashree Obesity (BMI 30 -39.9); MD Lakhwinder Diabetic nephro raysa associated with other specified diabetes mellitus (HCC); ESRD (end stage renal disease) on dialysis (HCC); Essential hyper tension; Proliferative d iabetic retinopathy of both eyes associated with type 2 diabetes mellitus, unspecified proliferative retinopathy type (HCC); Heel ulceration , right, with unspecified severity (HCC) 04/10/2019 Hospital Encounter Radiology Best, ESRD (end stage renal disease) on dialysis (HCC); Bhamidipati Awaiting transp lantation of kidney MD Lakhwinder 04/10/2019 Outside Orders Kelli Schmid MD 03/25/2019 Documentation Transplant Lori Quiñones 02/19/2019 Orders Only Transplant Rebecca Hendrickson RN ESRD (end s tage renal disease) on dialysis (HCC) (Primary Dx); Awaiting transp lantation of kidney after 02/14/2019 Family History Medical History Relation Name Comments [...] Vital Signs Vital Sign Reading Time Taken Comments Blood Pressure 122/60 10/14/2019 10:54 AM CDT Pulse 114 10/14/2019 10:54 AM CDT Temperature 36.9 C (98.4 F) 04/10/2019 12:31 PM [facility] [facility] Respiratory Rate 18 10/14/2019 10:54 AM CDT Oxygen Saturation 98% 10/14/2019 10:54 AM CDT Inhaled Oxygen Concentration - - Weight 110.1 kg (242 lb 12.8 oz) 04/10/2019 12:31 PM [facility] Height 177.8 cm (5' 10") 04/10/2019 12:31 PM [facility] [employer] [facility] Body Mass Index 34.84 04/10/2019 12:31 PM [facility] [employer] [facility] Plan of Treatment Date Type Specialty Care Team Description 04/01/2020 Evaluation Transplant 04/01/2020 Evaluation Transplant 04/01/2020 Evaluation Transplant 04/01/2020 Orders Only Transplant Hepatology Cynthia Dejesus MD [address] [address] 0 [phone] Health Maintenance Due Date Last Done Comments DIABETIC EYE EXAM 1985 DIABETIC FOOT EXAM 1985 URINE MICROALBUMIN 1985 CERVICAL CANCER SCREENING PAP ONLY (Age 21-65) 1996 MEDICARE ANNUAL WELLNESS (YEAR 2 or FIRST YEAR if no 11/29/2002 IPPE) HEMOGLOBIN A1C 06/23/2017 12/21/2016 LIPID PANEL 07/26/2019 07/25/2016 INFLUENZA VACCINE (#1) 2019 Procedures Procedure Name Priority Date/Time Associated Diagnosis Comme nts CT ABDOMEN WITH & Routine 10/14/2019 2:37 Renal cysts, acquir ed, Results for this WITHOUT IV CONTRAST PM CDT bilateral procedure are in ESRD (end stage renal the re sults disease) on dialysis section . (HCC) Type 2 diabetes mellitus with chronic kidney disease on chronic dialysis, unspecified whether chcf insulin use (HCC) Secondary hypert ension Awaiting transplantation of kidney STRESS ECHO Routine 10/14/2019 10:09 Renal cysts, acquired, R esults for this AM CDT bilateral procedure are in ESRD (end stage renal the re sults disease) on dialysis section . (HCC) Type 2 diabetes mellitus with chronic kidney disease on chronic dialysis, unspecified whether chcf insulin use (HCC) Secondary hypert ension Awaiting transplantation of kidney 2D ECHO W/ DOPPLER Routine 10/14/2019 9:49 Renal cysts, acqui red, Results for this (CW/PW/COLOR) AM CDT bilateral procedure are in ESRD (end stage renal the re sults disease) on dialysis section . (HCC) Type 2 diabetes mellitus with chronic kidney disease on chronic dialysis, unspecified whether chcf insulin use (HCC) Secondary hypert ension Awaiting transplantation of kidney TREADMILL Routine 10/14/2019 9:45 Results for this TOLERANCE(NON-NUCLE AM CDT procedur e are in AR TREADMILL) the results section. CRSMTCH SEROLOGY FV Routine 04/10/2019 12:13 Awaiting Resu lts for this 3 PM [facility] transplantation of procedure are in kidney the results section. CRSMTCH FLOW 3 Routine 04/10/2019 12:13 Awaiting Results f or this SERUM PM [employer] [employer] [facility] transplantation of procedure are in kidney the results section. VIRTUAL CROSSMATCH Routine 04/10/2019 12:13 Awaiting Resul ts for this PM [facility] [employer] [facility] transplantation of procedure are in kidney the results section. FLOW PRA CLASS II Routine 04/10/2019 12:13 Awaiting Result s for this WITH REFLEX TO PM [employer] [employer] [facility] transplantation of procedu re are in ANTIBODY kidney the results SPECIFICITY section. FLOW PRA CLASS I Routine 04/10/2019 12:13 Awaiting Results for this WITH REFLEX TO PM [employer] [employer] [facility] transplantation of procedu re are in ANTIBODY kidney the results SPECIFICITY section. US ABDOMEN COMPLETE Routine 04/10/2019 12:05 ESRD (end stage r enal Results for this PM [facility] [employer] [facility] disease) on dialysis procedu re are in (HCC) the results Awaiting section. transplantation of kidney after 02/14/[address] abdomen without & with IV contrast (10/14/2019 2:37 PM CDT) Specimen Narrative Performed At FINAL REPORT [facility] ABDOMINAL CT DATED 10/14/2019 CLINICAL INFORMATION: renal mass ryan col TECHNIQUE: Axial images of the abdomen were obtained from diaphragm to the upper pelvis with and without int ravenous contrast. This exam was performed according to our departmental dose-optimization program, which include s automated exposure control, adjustment of the mA and/or kV according to patient size and/or use of interactive reconstruction technique. COMMENT: Liver and spleen are normal in size without focal abnormality. Gallbladder is surgically absent. No biliary dilatation is noted. Pancreas and adrenals are unremarkable. Both kidneys are atrophic suggesting med ical renal disease. Numerous, more than 5, cysts are seen in the left kidney with the largest measuring approximately 3.5 cm. Numerous , more than 5, cysts are seen in the right kidney with largest measuri ng 1 cm. No enhancing mass is seen in either kidney. No hydronephrosis , hydroureter, or urolithiasis is present. The small and large bowel are unremarkab le. No mass, adenopathy or ascites is presen t. IMPRESSION: Medical renal disease with bilateral renal cysts. Signed: Lucille Shultz MD Report Verified Date/Time: 10/14/2019 15:40:59 Reading Location: [facility] C013Y CT [facility] Procedure Note Interface, External Ris In - 10/14/2019 3:43 PM CDT FINAL REPORT ABDOMINAL CT DATED 10/14/2019 CLINICAL INFORMATION: renal mass protoc ol TECHNIQUE: Axial images of the abdomen were obtained from diaphragm to the upper pelvis with and without int ravenous contrast. This exam was performed according to our departmental dose-optimization program, which include s automated exposure control, adjustment of the mA and/or kV according to patient size and/or use of interactive reconstruction technique. COMMENT: Liver and spleen are normal in size without focal abnormality. Gallbladder is surgically absent. No biliary dilatation is noted. Pancreas and adrenals are unremarkable. Both kidneys are atrophic suggesting med ical renal disease. Numerous, more than 5, cysts are seen in the left kidney with the largest measuring approximately 3.5 cm. Numerous , more than 5, cysts are seen in the right kidney with largest measuri ng 1 cm. No enhancing mass is seen in either kidney. No hydronephrosis , hydroureter, or urolithiasis is present. The small and large bowel are unremarkab le. No mass, adenopathy or ascites is presen t. IMPRESSION: Medical renal disease with bilateral renal cysts. Signed: Lucille Shultz MD Report Verified Date/Time: 10/14/2019 1 5:40:59 Reading Location: [facility] B1 C013Y CT Body R eading Room Performing Organization Address City/State/Zipcode Phone Number GE RIS Stress Echo With Tracing (10/14/2019 10:09 AM CDT) Pathologist Sig nature Ejection Fraction Est EF of >70% [facility] Specimen Narrative Performed At Stress Echocardiography Report [facility] Demographics Patient Name ALBA COOLEY Date of Study 10/14/2019 YULIYA Gender Female Visit Number [id number] Race Room Number OP Number Date of 1975 Referring Josemanuel Box Physician Age 44 year(s) 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 Clinical History DM, ESRD on HD, HLD, HTN Height: 70 inches Weight: 109.77 kg (242 lbs) BSA: 2.26 m^2 BMI: 34.72 kg/m^2 HR: 78 bpm BP: 138/80 mmHg Rest ECG Stress echo indication: Preoperative evaluation for renal transplant . Baseline ECG with normal sinus rhythm, heart rate of 79 bpm, normal axis, no ST segment elevations or depressions at rest. Stress Stress Type: Pharmacologic Peak HR: 160 bpm HR BP Product: 02515 Peak BP: 138/80 mmHg Predicted HR: 176 bpm % of predicted HR: 91 Test Duration: 30:00 min Stress Interpretation All segments contract normally at baseline and at all stages of stress. Results Global LVEF (rest): Normal (LVEF >50%) Global LVEF (stress): Hyperkinetic (LVE F >70%) ECG Stress ECG with sinus tachycardia, no significant ST segment changes Arrhythmias None Symptoms None Stress Protocol: Pharmacologic - Dobutam ine +-----+-----+------+ +------+-----+------ --+--+--------+----+------+ !Stage!Time !Dosage!Other !Dosage!Heart!Blood !CP!Pain !Pain!Pain ! !# ! ! !Medication! !Rate !Pressure! !Location!Type!Acti on! +-----+-----+------+ +------+-----+------ --+--+--------+----+------+ !1.0 !05:00!5.00 ! ! ! ! ! ! ! ! ! +-----+-----+------+ +------+-----+------ --+--+--------+----+------+ !2.0 !10:00!10.00 ! ! ! ! ! ! ! ! ! +-----+-----+------+ +------+-----+------ --+--+--------+----+------+ !3.0 !15:00!20.00 ! ! ! ! ! ! ! ! ! +-----+-----+------+ +------+-----+------ --+--+--------+----+------+ !4.0 !20:00!30.00 ! ! ! ! ! ! ! ! ! +-----+-----+------+ +------+-----+------ --+--+--------+----+------+ !5.0 !25:00!40.00 ! ! ! ! ! ! ! ! ! +-----+-----+------+ +------+-----+------ --+--+--------+----+------+ !6.0 !30:00!50.00 ! ! ! ! ! ! ! ! ! +-----+-----+------+ +------+-----+------ --+--+--------+----+------+ !7.0 ! ! !Atropine !0.50 ! ! ! ! ! ! ! +-----+-----+------+ +------+-----+------ --+--+--------+----+------+ !8.0 ! ! !Atropine !0.25 ! ! ! ! ! ! ! +-----+-----+------+ +------+-----+------ --+--+--------+----+------+ !9.0 ! ! !Atropine !0.25 ! ! ! ! ! ! ! +-----+-----+------+ +------+-----+------ --+--+--------+----+------+ Summary Indications: pre surgical evaluation for organ transplantation Procedure done: Dobutamine stress echoc ardiogram. Complications: None Medications: Atropine: 1.0 mg. Dobutamine infusion with peak rate of 40 mcg/kg/min. ECG: The resting heart rate was 79 bpm. Resting electrocardiogram showed normal sinus rhythm with no ischemic changes. The heart rate increased to 160 bpm which corresponded to 90% maximum predicted heart rate. There were no ischemic ECG changes noted. There were no arrhythmias noted. The blood pressure at baseline was 138/80 mm Hg and was 138/80 at peak stress. The patient did not develop any significant symptoms. Echocardiogram: Resting echocardiogram showed normal LV systolic function, estimated LVEF of >50%. Normal wall motion. At peak stress, the echocardiogram showed appropriate LV augmentation. Estimated LVEF of >70%. Normal wall motion. Conclusion: Stress was negative for symptoms, and negative for ischemic ECG and echocardiogram changes at a diagnostic level of stress. Signature Left Ventricle LVEDV Ruiz's:83.4 ml LVESV Ruiz's:31.28 ml LVEF Ruiz's: 62.5 % LVEDVI: 37 ml/m^2 LVESVI: 14 ml/m^2 Procedure Note Interface, External Ris In - 10/14/2019 2:22 PM CDT Stress Echocardiography Report Demographics Patient Name ALBA COOLEY o Study 10/14/2019 YULIYA Gender Female Visit Number [id number] Race Room N [facility] OP Number Date of 1975 Referr lucas Box Physic bebeto Age 44 year(s) Sonogr apher Lorin Whittington RDCS Interp reting Corrine Grande MD Fellow FLORINDA Bosch Procedure Type of Study Stress procedure:STRESS(TMT)E CHO W/TMT TRACING (Routine) Indications:Pre-surgical evaluation of o rgan transplant. Clinical History DM, ESRD on HD, HLD, HTN Height: 70 inches Weight: 109.77 kg (242 lbs) BSA: 2.26 m^2 BMI: 34.72 kg/m^2 HR: 78 bpm BP: 138/80 mmHg Rest ECG Stress echo indication: Preoperative ev aluation for renal transplant . Baseline ECG with normal sinus rhythm, heart rate of 79 bpm, normal axis, no ST segment elevations or depressions at rest. Stress Stress Type: Pharmacologic Peak HR: 160 bpm HR BP Product: [id number] Peak BP: 138/80 mmHg Predicted HR: 176 bpm % of predicted HR: 91 Test Duration: 30:00 min Stress Interpretation All segments contract normally at basel ine and at all stages of stress. Results Global LVEF (rest): Normal (LVEF >50%) Global LVEF (stress): Hyperkinetic (LVE F >70%) ECG Stress ECG with sinus tachycardia, no s ignificant ST segment changes Arrhythmias None Symptoms None Stress Protocol: Pharmacologic - Dobutam ine +-----+-----+------+ +------+-- ---+--------+--+--------+----+------+ !Stage!Time !Dosage!Other !Dosage!He art!Blood !CP!Pain !Pain!Pain ! !# ! ! !Medication! !Ra te !Pressure! !Location!Type!Action! +-----+-----+------+ +------+-- ---+--------+--+--------+----+------+ !1.0 !05:00!5.00 ! ! ! ! ! ! ! ! ! +-----+-----+------+ +------+-- ---+--------+--+--------+----+------+ !2.0 !10:00!10.00 ! ! ! ! ! ! ! ! ! +-----+-----+------+ +------+-- ---+--------+--+--------+----+------+ !3.0 !15:00!20.00 ! ! ! ! ! ! ! ! ! +-----+-----+------+ +------+-- ---+--------+--+--------+----+------+ !4.0 !20:00!30.00 ! ! ! ! ! ! ! ! ! +-----+-----+------+ +------+-- ---+--------+--+--------+----+------+ !5.0 !25:00!40.00 ! ! ! ! ! ! ! ! ! +-----+-----+------+ +------+-- ---+--------+--+--------+----+------+ !6.0 !30:00!50.00 ! ! ! ! ! ! ! ! ! +-----+-----+------+ +------+-- ---+--------+--+--------+----+------+ !7.0 ! ! !Atropine !0.50 ! ! ! ! ! ! ! +-----+-----+------+ +------+-- ---+--------+--+--------+----+------+ !8.0 ! ! !Atropine !0.25 ! ! ! ! ! ! ! +-----+-----+------+ +------+-- ---+--------+--+--------+----+------+ !9.0 ! ! !Atropine !0.25 ! ! ! ! ! ! ! +-----+-----+------+ +------+-- ---+--------+--+--------+----+------+ Summary Indications: pre surgical evaluation fo r organ transplantation Procedure done: Dobutamine stress echoc ardiogram. Complications: None Medications: Atropine: 1.0 mg. Dobutami ne infusion with peak rate of 40 mcg/kg/min. ECG: The resting heart rate was 79 bpm. Resting electrocardiogram showed normal sinus rhythm with no ischemic ch anges. The heart rate increased to 160 bpm which corresponded to 90% maxim um predicted heart rate. There were no ischemic ECG changes noted. There we re no arrhythmias noted. The blood pressure at baseline was 138/80 mm Hg a nd was 138/80 at peak stress. The patient did not develop any significant symptoms. Echocardiogram: Resting echocardiogram showed normal LV systolic function, estimated LVEF of >50%. Normal wall mot ion. At peak stress, the echocardiogram showed appropriate LV au gmentation. Estimated LVEF of >70%. Normal wall motion. Conclusion: Stress was negative for sym ptoms, and negative for ischemic ECG and echocardiogram changes at a josefina gnostic level of stress. Signature Left Ventricle LVEDV Ruiz's:83.4 ml LVESV Ruiz's:31.28 ml LVEF Ruiz's: 62.5 % LVEDVI: 37 ml/m^2 LVESVI: 14 ml/m^2 Performing Organization Address City/State/Zipcode Phone Number [facility] W/Doppler(CW/PW/Color) (10/14/2019 9:49 AM CDT) Pathologist Sig nature Ejection Fraction [facility] Specimen Narrative Performed At Transthoracic Echocardiography Report (T TE) [facility] Demographics Patient Name ALBA COOLEY Date of Study 10/14/2019 YULIYA Gender Female Visit Number [id number] Race Room Number OP Number Date of 1975 Referring Josemanuel Box Physician Age 44 year(s) 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 Clinical History DM, ESRD on HD, HLD, HTN Height: 70 inches Weight: 109.77 kg (242 lbs) BSA: 2.26 m^2 BMI: 34.72 kg/m^2 HR: 78 bpm BP: 138/80 mmHg Summary Normal diastolic function. LV endocardium is well visualized with IV ultrasound enhancing agent. The left ventricle is chamber size (by vol index) is normal (female - LVED vol - 29-61ml/m2). LV septal thickness is normal (0.6-1.1cm). LV posterior wall thickness is mildly increased (1.2-1.4cm) . All of the LV segments contract normally . LVEF by Ruiz's method of disk assessment is increased (>70%) . Normal diastolic function. Signature Findings Technical Quality: Good visualization Rhythm/BP Regular sinus rhythm during the exam. Left Ventricle LV endocardium is well visualized with IV ultrasound enhancing agent. The left ventricle is chamber size (by vol index) is normal (female - LVED vol - 29-61ml/m2). LV septal thickness is normal (0.6-1.1cm). LV posterior wall thickness is mildly increased (1.2 -1.4cm) . All of the LV segments contract normally . LVEF by Ruiz's method of disk assessment is increased (>70%) . Normal diastolic function. Left Atrium LA is adequately visualized. LA size is normal (16-34 ml/m2) . Right Ventricle The right ventricular chamber size and systolic function are within normal limits. Right Atrium RA size is normal. Aortic Valve Normal AoV structure and function by limited views and Doppler. Mitral Valve Normal MV structure and function by available views and Doppler. Tricuspid Valve Normal TV structure and function by available views and Doppler. Estimated peak systolic PA pressure is 20-25 mmHg + RA p ressure. Pulmonic Valve Normal PV structure and function by limited views and Doppler. Aorta Aortic root size (SInus of Valsalva diameter) is norm al . Pericardium No significant pericardial effusion is visualized. IVC/SVC/PA/PV/Pleural The IVC is <2.1cm and >50% collapsible suggestive of RAP of 3 mm Hg. Chambers/Structures Left Atrium LA Volume: 64.43 ml LA Area: 20.92 cm^2 LA Vol. Index: 29 ml/m^2 Left Ventricle LVIDd: 4.26 cm LVEDV:121.65 ml LVIDs: 2.16 cm LV Septum Diastolic: 0.96 cm LV PW Diastolic: 1.29 cm LV FS: 49.3 % LVEDV Ruiz's:78.09 ml LVESV Ruiz's:18.88 ml LVEDVI: 35 ml/m^2 LVEF Ruiz's: 75.8 % LVESVI: 8 ml/m^2 LVOT Diameter: 2.19 cm Right Ventricle RVOT VTI: 20.96 cm TAPSE: 2.26 cm Aorta Ao Root S of Renu.: 2.53 cm Ascending Aorta: 2.71 cm Doppler/Quantitative Measurements Mitral Valve MV Peak E-Wave: 0.78 m/s MV Peak A-Wave: 0.64 m/s P1/2t: 69.2 msec E/A Ratio: 1.22 Mean Velocity: 0.6 m/s Peak Gradient: 2.43 mmHg Mean Gradient: 1.65 mmHg Deceleration Time: 226.5 msec MV Area (PHT): 3.18 cm^2 Area (continuity): 3.21 cm^2 MV VTI: 28.67 cm MV Manjit. Peak: 0.93 m/s Tissue Doppler E' Septal Velocity: 0.08 m/s A' Septal Velocity: 0.07 m/s E' Lateral Velocity: 0.12 m/s A' Lateral Velocity: 0.09 m/s E/E': 6.36 Aortic Valve Peak Velocity: 1.35 m/s Mean Velocity: 0.85 m/s Peak Gradient: 7.3 mmHg Mean Gradient: 3.4 mmHg AV Area (continuity): 3.19 cm^2 AV VTI: 28.77 cm AV DVI: 0.85 LVOT Peak Velocity: 1.04 m/s Peak Gradient: 4.34 mmHg Mean Velocity: 0.58 m/s Mean Gradient: 1.76 mmHg LVOT Diameter: 2.19 cm LVOT VTI: 24.41 cm LVOT Area: 3.77 cm^2 LVOT SV:91.9 ml LVOT CO: 7.17 l/min LVOT CI: 3.17 l/min/m^2 RVOT RVOT VTI (PW): 21.49 cm Tricuspid Valve TR Velocity: 2.38 m/s TR Gradient: 22.6 mmHg Pulmonic Valve Peak Velocity: 1.05 m/s Peak Gradient: 4.43 mmHg Mean Velocity: 0.74 m/s Mean Gradient: 2.16 mmHg Procedure Note Interface, External Ris In - 10/14/2019 2:26 PM CDT Transthoracic Echocardiography Report (TTE) Demographics Patient Name ALBA COOLEY Date o f Study 10/14/2019 YULIYA Gender Female Visit Number [id number] Race Room N [facility] OP Number Date of 1975 Referr lucas tate Age 44 year(s) 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 Clinical History DM, ESRD on HD, HLD, HTN Height: 70 inches Weight: 109.77 kg (242 lbs) BSA: 2.26 m^2 BMI: 34.72 kg/m^2 HR: 78 bpm BP: 138/80 mmHg Summary Normal diastolic function. LV endocardium is well visualized with IV ultrasound enhancing agent. The left ventricle is chamber size (by vol index) is normal (female - LVED vol - 29-61ml/m2). LV septal thickness is normal (0.6-1.1c m). LV posterior wall thickness is mildly increased (1.2-1.4cm) . All of the LV segments contract normall y . LVEF by Ruiz's method of disk assessment is increased (>70%) . N ormal diastolic function. Signature Findings Technical Quality: Good visualization Rhythm/BP Regular sinus rh ythm during the exam. Left Ventricle LV endocardium i s well visualized with IV ultrasound enhan cing agent. The left ventricle is chamber size (by vol index) is normal (female - LVED vol - 29-61 ml/m2). LV septal thickn ess is normal (0.6-1.1cm). LV posterior wall t hickness is mildly increased (1.2-1.4cm) . All of the LV se gments contract normally . LVEF by Ruiz's method of disk assessment is increased (>70%) . Normal diastolic function. Left Atrium LA is adequately visualized. LA size is charlee l (16-34 ml/m2) . Right Ventricle The right ventri cular chamber size and systolic function are wit hin normal limits. Right Atrium RA size is charlee l. Aortic Valve Normal AoV struc ture and function by limited views and Doppler. Mitral Valve Normal MV struct ure and function by available views and Doppler. Tricuspid Valve Normal TV struct ure and function by available views and Doppler. Estimated peak s ystolic PA pressure is 20-25 mmHg + RA pressure. Pulmonic Valve Normal PV struct ure and function by limited views and Doppler. Aorta Aortic root size (SInus of Valsalva diameter) is normal . Pericardium No significant p ericardial effusion is visualized. IVC/SVC/PA/PV/Pleural The IVC is <2.1c m and >50% collapsible suggestive of RAP of 3 mm H g. Chambers/Structures Left Atrium LA Volume: 64.43 ml LA Area: 20.92 cm^2 LA Vol. Index: 29 ml/m^2 Left Ventricle LVIDd: 4.26 cm LVEDV:121.65 ml LVIDs: 2.16 cm LV Septum Diastolic: 0.96 cm LV PW Diastolic: 1.29 cm LV FS: 49.3 % LVEDV Ruiz's:78.09 ml LVESV Ruiz's:18.88 ml LVEDVI: 35 ml/m^2 LVEF Ruiz's: 75.8 % LVESVI: 8 ml/m^2 LVOT Diameter: 2.19 cm Right Ventricle RVOT VTI: 20.96 cm TAPSE: 2.26 cm Aorta Ao Root S of Renu.: 2.53 cm Ascending Aorta: 2.71 cm Doppler/Quantitative Measurements Mitral Valve MV Peak E-Wave: 0.78 m/s M V Peak A-Wave: 0.64 m/s P1/2t: 69.2 msec E /A Ratio: 1.22 Mean Velocity: 0.6 m/s P eak Gradient: 2.43 mmHg Mean Gradient: 1.65 mmHg D eceleration Time: 226.5 msec MV Area (PHT): 3.18 cm^2 A santiago (continuity): 3.21 cm^2 M V VTI: 28.67 cm MV Manjit. Peak: 0.93 m/s Tissue Doppler E' Septal Velocity: 0.08 m/s A ' Septal Velocity: 0.07 m/s E' Lateral Velocity: 0.12 m/s A ' Lateral Velocity: 0.09 m/s E /E': 6.36 Aortic Valve Peak Velocity: 1.35 m/s Mean Velocity: 0.85 m/s Peak Gradient: 7.3 mmHg Mean Gradient: 3.4 mmHg AV Area (continuity): 3.19 cm^2 AV VTI: 28.77 cm AV DVI: 0.85 LVOT Peak Velocity: 1.04 m/s Pea k Gradient: 4.34 mmHg Mean Velocity: 0.58 m/s Yris n Gradient: 1.76 mmHg LVOT Diameter: 2.19 cm LVO T VTI: 24.41 cm LVOT Area: 3.77 cm^2 LVO T SV:91.9 ml LVOT CO: 7.17 l/min LVO T CI: 3.17 l/min/m^2 RVOT RVOT VTI (PW): 21.49 cm Tricuspid Valve TR Velocity: 2.38 m/s TR Gradient: 22.6 mmHg Pulmonic Valve Peak Velocity: 1.05 m/s Pea k Gradient: 4.43 mmHg Mean Velocity: 0.74 m/s Yris n Gradient: 2.16 mmHg Performing Organization Address City/State/Zipcode Phone Number [facility] CPACS Treadmill tolerance(Non-Nuclear Treadmill) (10/14/2019 9:45 AM CDT) Specimen Narrative Performed At Protocol Name DOBUT TM-1 GE MUSE Time In Exercise Phase 00:16:10 Max. Systolic BP 138 mmHg Max Diastolic BP 80 mmHg Max Heart Rate 160 BPM Max Predicted Heart Rate 176 BPM Reason For Termination Target Heart Rate Achieved Reason for Test ESRD Target HR Formula (220 - Age)*100% Arrhythmias none Resting ECG Normal sinus rhythm normal axis ST Changes No Significant Changes Overall Impression No evidence of ischem ia Chest Pain none HR Response To Exercise Appropriate Response for Pharm acological Stress T BP Response To Exercise Appropriate Response for Pharm acological Stress T Functional Capacity n/a Altace,Atenolol, Calcitriol, Clonidine, INSULIN, ACTOS Confirmed by MD LOZA RAYMOND ([id number]) on 0 9:07:17 AM Procedure Note Interface, External Ris In - 10/24/2019 9:07 AM CDT Protocol Name DOBUT TM-1 Time In Exercise Phase 00:16:10 Max. Systolic BP 138 mmHg Max Diastolic BP 80 mmHg Max Heart Rate 160 BPM Max Predicted Heart Rate 176 BPM Reason For Termination Target Heart Rate Achieved Reason for Test ESRD Target HR Formula (220 - Age)*100% Arrhythmias none Resting ECG Normal sinus rhythm normal axis ST Changes No Significant Changes Overall Impression No evidence of ischem ia Chest Pain none HR Response To Exercise Appropriate Resp onse for Pharmacological Stress T BP Response To Exercise Appropriate Resp onse for Pharmacological Stress T Functional Capacity n/a Altace,Atenolol, Calcitriol, Clonidine, INSULIN, ACTOS Confirmed by MD LOZA RAYMOND ([id number]) on 10/24/2019 9:07:17 AM Performing Organization Address City/State/Zipcode Phone Number [employer] CRSMTCH SEROLOGY FV 3 (04/10/2019 12:13 PM BOBBIN COIL WINDER) CDC-XM FV1 [facility] HLA TESTING CDC-XM FV1 [facility] RES Neg Historical [facility] HLA TESTING CDC-XM FV2 [facility] HLA TESTING CDC-XM FV2 [facility] RES Neg Current [facility] HLA TESTING CDC-XM FV3 [facility] HLA TESTING CDC-XM FV3 [facility] RES Neg Pre Txp [facility] HLA TESTING Crsmtch Serology [facility] FV 3 Comment CROSSMATCH RESULTS: NEGATIVE UNOS ID [id number] [facility] TEST[facility] Donor Name [id number], DD-IMPORT [facility] HLA TESTING Specimen Blood Narrative Performed At Disclaimer: [facility] HLA TEST[facility] This test was developed and its performance characteri stics determined by the [facility]. It has not been clemente red or approved by the U.S. Food and Drug Administration. The FDA has determined that such clearance or approval is not nece ssary. This test is used for clinical purposes. It should not be r egarded as investigational or for research. This laboratory is ce rtified under the Clinical Laboratory Improvement Amendments o f 1988 (CLIA-88) as qualified to perform high complexity clin ical laboratory testing. Performing Organization Address City/[facility] Phone Number [facility] HLA TESTING ONE Rafael Lozada, MS: [place] [address] [id number], CLIA#[id number] CAP#[id number] UNOS#[id number] FLOW PRA CLASS II WITH REFLEX TO ANTIBODY SPECIFICITY (04/10/2019 12:13 PM BOBBIN COIL WINDER) Pathologist [facility] nature Flow Class II Percent 0 [facility] TESTING Positive Specimen Blood Narrative Performed At Disclaimer: [facility] TEST[facility] This test was developed and its performance characteri stics determined by the [facility]. It has not been clemente red or approved by the U.S. Food and Drug Administration. The FDA has determined that such clearance or approval is not nece ssary. This test is used for clinical purposes. It should not be r egarded as investigational or for research. This laboratory is ce rtified under the Clinical Laboratory Improvement Amendments o f 1988 (CLIA-88) as qualified to perform high complexity clin ical laboratory testing. Performing Organization Address City/State/[facility] Phone Number [facility] HLA TESTING ONE Rafael Lozada, MS: [place] [address] [id number], CLIA#[id number] CAP#[id number] UNOS#[id number] FLOW PRA CLASS I WITH REFLEX TO ANTIBODY SPECIFICITY (04/10/2019 12:13 PM BOBBIN COIL WINDER) Pathologist Sig nature Flow Class I Percent 0 [facility] TESTING Positive Specimen Blood Narrative Performed At Disclaimer: [facility] TEST[facility] This test was developed and its performance characteri stics determined by the [facility]. It has not been clemente red or approved by the U.S. Food and Drug Administration. The FDA has determined that such clearance or approval is not nece ssary. This test is used for clinical purposes. It should not be r egarded as investigational or for research. This laboratory is ce rtified under the Clinical Laboratory Improvement Amendments o f 1988 (CLIA-88) as qualified to perform high complexity clin ical laboratory testing. Performing Organization Address City/State/[facility] Phone Number [facility] TEST[facility] ONE [place], [place]: [place] [address] [id number], CLIA#[id number] CAP#[id number] UNOS#[id number] VIRTUAL CROSSMATCH (04/10/2019 12:13 PM BOBBIN COIL WINDER) VXM dHLA Potential dHLA [facility] TEST[facility] Donor HLA Result A2 A29; B62 B44; [facility] TEST[facility] Bw6 Bw4; Cw10 Cw16; DR7 DR13; DR52 DR53; DQA02:01 DQA03:02 DQ2 DQ9 DPA01:03 DPA02:01 DPB04:01 DPB17:01 VXM DSA (MFI) DSA and MFI [facility] TEST[facility] DSA and MFI Result NO DSA [facility] Virtual XM Virtual XM Result [facility] TEST[facility] VXM Result CURRENT NEGATIVE [facility] TEST[facility] UNOS ID [id number] [facility] TEST[facility] Donor Name [id number], DD-IMPORT [facility] TESTING Specimen Blood Narrative Performed At Disclaimer: [facility] TESTING This test was developed and its performance characteri stics determined by the [facility]. It has not been clemente red or approved by the U.S. Food and Drug Administration. The FDA has determined that such clearance or approval is not nece ssary. This test is used for clinical purposes. It should not be r egarded as investigational or for research. This laboratory is ce rtified under the Clinical Laboratory Improvement Amendments o f 1988 (CLIA-88) as qualified to perform high complexity clin ical laboratory testing. Performing Organization Address City/State/[facility] Phone Number [facility] HLA TESTING ONE Rafael Lozada, MS: [place] [address] [id number], CLIA#[id number] CAP#[id number] UNOS#[id number] CRSMTCH FLOW 3 SERUM (04/10/2019 12:13 PM BOBBIN COIL WINDER) T-FXM Serum1 T(IgG) [facility] TEST[facility] T-FXM Serum1 Res Neg Historical [facility] TEST[facility] B-FXM Serum1 B(IgG) [facility] TEST[facility] B-FXM Serum1 Res Neg Historical [facility] TEST[facility] T-FXM Serum2 T(IgG) [facility] TEST[facility] T-FXM Serum2 Res Neg Current [facility] TEST[facility] B-FXM Serum2 B(IgG) [facility] TEST[facility] B-FXM Serum2 Res Neg Current [facility] TEST[facility] T-FXM Serum3 T(IgG) [facility] TEST[facility] T-FXM Serum3 Res Neg Pre Txp [facility] TEST[facility] B-FXM Serum3 B(IgG) [facility] TEST[facility] B-FXM Serum3 Res Neg Pre Txp [facility] HLA TESTING Crsmtch Flow DONOR FLOW [facility] HLA TESTING Comment CROSSMATCH RESULTS: NEGATIVE UNOS ID [id number] [facility] TEST[facility] Donor Name [id number], DD-IMPORT [facility] TESTING Specimen Blood Narrative Performed At Disclaimer: [facility] TEST[facility] This test was developed and its performance characteri stics determined by the [facility]. It has not been clemente red or approved by the U.S. Food and Drug Administration. The FDA has determined that such clearance or approval is not nece ssary. This test is used for clinical purposes. It should not be r egarded as investigational or for research. This laboratory is ce rtified under the Clinical Laboratory Improvement Amendments o f 1988 (CLIA-88) as qualified to perform high complexity clin ical laboratory testing. Performing Organization Address City/State/Zipcode Phone Number [facility] HLA TESTING ONE Rafael Lozada, MS: [place], [place] [address] [id number], CLIA#[id number] CAP#[id number] UNOS#[id number] US abdomen complete (04/10/2019 12:05 PM BOBBIN COIL WINDER) Specimen Narrative Performed At FINAL REPORT [facility] TECHNIQUE: Grayscale ultrasound of the a bdomen. INDICATION: pre transplant evaluation fo r kidney transplant. COMPARISON: Ultrasound from 07/25/2016. FINDINGS: MIDLINE VASCULATURE: The visualized infe rior vena cava is unremarkable. The maximum visualized aor tic diameter is 2.4 cm. LIVER: The liver is mildly enlarged 17.3 cm right hepatic lobe length Smooth liver contour. No focal lesions. The main portal vein is patent and measures 1.2 cm in diameter. BILIARY: Gallbladder: Prior cholecystectomy Common bile duct measures 0.8 cm, within normal limits. No intrahepatic biliary ductal dilatation. PANCREAS: Not well visualized due to ove rlying bowel gas. SPLEEN: No splenomegaly. The spleen zoya ures 11.2 cm in length. PERITONEUM: No free fluid. KIDNEYS: The kidneys are markedly echoge pedro but normal in size. No hydronephrosis. No sonographically evide nt solid mass lesion. There are at least 10 cysts in the right kidney which measure up to 0.6 cm. There are at least eight cysts i n the left which measure up to 3. 3.4 x 3.5 cm. 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 Signed: Logan Patel MD Report Verified Date/Time: 04/10/2019 19:27:20 Reading Location: [address] Reading Room Procedure Note Interface, External Ris In - 04/10/2019 7:29 PM BOBBIN COIL WINDER FINAL REPORT TECHNIQUE: Grayscale ultrasound of the javier shin. INDICATION: pre transplant evaluation fo r kidney transplant. COMPARISON: Ultrasound from 07/25/2016. FINDINGS: MIDLINE VASCULATURE: The visualized infe rior vena cava is unremarkable. The maximum visualized aor tic diameter is 2.4 cm. LIVER: The liver is mildly enlarged 17.3 cm right hepatic lobe length Smooth liver contour. No focal lesions. The main portal vein is patent and measures 1.2 cm in diameter. BILIARY: Gallbladder: Prior cholecystectomy Common bile duct measures 0.8 cm, within normal limits. No intrahepatic biliary ductal dilatation. PANCREAS: Not well visualized due to ove rlying bowel gas. SPLEEN: No splenomegaly. The spleen zoya ures 11.2 cm in length. PERITONEUM: No free fluid. KIDNEYS: The kidneys are markedly echoge pedro but normal in size. No hydronephrosis. No sonographically evide nt solid mass lesion. There are at least 10 cysts in the right kidney which measure up to 0.6 cm. There are at least eight cysts i n the left which measure up to 3. 3.4 x 3.5 cm. 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 Signed: Logan Patel MD Report Verified Date/Time: 04/10/2019 1 9:27:20 Reading Location: [address] Radiolog Reading Room Performing Organization Address City/State/Zipcode Phone Number GE RIS after 02/14/2019
[2020-02-15] MEDS ORDERED: FENTANYL CITR 100 MCG/2 ML ONE (09:43)
[2020-02-15] MEDS ORDERED: LIDOCAINE 4% PATCH ONE (09:43)
--- NOTE | 2020-02-15 10:53 | EDPHYS ---
Physician Documentation [facility] Name: Alba Aldridge Age: 44 yrs Sex: Female : 1975 Arrival Date: 02/15/2020 Time: 08:43 Bed 18 Private MD: ED Physician Damian Reina HPI: 02/14 09:36 This 44 yrs old Female presents to ER via EMS with complaints of MUSCLE pm1 SPASMS. 09:36 The patient presents with pain muscle spasms to left lower back. The symptoms are pm1 located in the low back. The pain does not radiate. The problem was sustained when bending over, climbing into bed. Onset: The symptoms/episode began/occurred today. Modifying factors: The patient symptoms are alleviated by nothing, the patient symptoms are aggravated by movement. Associated signs and symptoms: Pertinent negatives: abdominal pain, chest pain, fever, numbness, tingling. Severity of symptoms: in the emergency department the symptoms are actually worse. Patient was bending over climbing onto her bed and started having muscle spasms to left lower back. No fall injury or trauma. Historical: - Allergies: 09:01 No Known Allergies; bp - Home Meds: 09:01 Actos 30 mg Oral tab 1 tab once daily [Active]; calcium acetate Oral [Active]; bp clonidine HCl 0.2 mg Oral tab 1 tab 2 times per day [Active]; Lantus 100 unit/mL Sub-Q soln 28 unit daily [Active]; - PMHx: 09:01 Diabetes - IDDM; Hypertension; Dialysis; Renal Disease; bp - Immunization history:: Last tetanus immunization: up to date. - Social history:: Smoking status: Patient denies any tobacco usage or history of. ROS: 09:36 Constitutional: Negative for fever, chills, and weight loss, Cardiovascular: Negative pm1 for chest pain, palpitations, and edema, Respiratory: Negative for shortness of breath, cough, wheezing, and pleuritic chest pain, Abdomen/GI: Negative for abdominal pain, nausea, vomiting, diarrhea, and constipation. 09:36 MS/Extremity: Negative for injury and deformity, Skin: Negative for injury, rash, and discoloration, Neuro: Negative for headache, weakness, numbness, tingling, and seizure. 09:36 Back: Positive for pain with movement, of the left low back, muscle spasm. Exam: 09:36 Constitutional: This is a well developed, well nourished patient who is awake, alert, pm1 and in no acute distress. Head/Face: Normocephalic, atraumatic. 09:36 Skin: Warm, dry with normal turgor. Normal color with no rashes, no lesions, and no evidence of cellulitis. MS/ Extremity: Pulses equal, no cyanosis. Neurovascular intact. Full, normal range of motion. 09:36 Cardiovascular: Exam negative for acute changes, Rate: normal, Rhythm: regular, Pulses: no pulse deficits are appreciated. 09:36 Respiratory: Exam negative for acute changes, respiratory distress, shortness of breath. 09:36 Abdomen/GI: Exam negative for acute changes, Inspection: abdomen appears normal, Palpation: abdomen is soft and non-tender, in all quadrants. 09:36 Back: vertebral tenderness, is not appreciated, muscle spasm, is appreciated in the left low back. 09:36 Neuro: Exam negative for acute changes, Orientation: is normal, Motor: is normal, moves all fours. Vital Signs: 08:45 BP 144 / 83; Pulse 80; Resp 16; Temp 98; Pulse Ox 99% ; bp 09:07 BP 141 / 67; Pulse 84; Resp 16; Pulse Ox 100% ; bp 10:12 BP 127 / 64; Pulse 78; Resp 16; Pulse Ox 99% ; bp 11:15 BP 122 / 70; Pulse 77; Resp 20; Temp 98; Pulse Ox 100% ; bp MDM: 09:17 Patient medically screened. pm1 09:53 Data reviewed: vital signs. Data interpreted: Pulse oximetry: on room air is 100 %. pm1 Interpretation: normal. 10:52 Counseling: I had a detailed discussion with the patient and/or guardian regarding: the pm1 historical points, exam findings, and any diagnostic results supporting the discharge/admit diagnosis, the need for outpatient follow up, to return to the emergency department if symptoms worsen or persist or if there are any questions or concerns that arise at home. 10:57 ED course: GRID MAKER aware reviewed. pm1 11:11 ED course: Patient reports a little improvement in pain with the narcotic given. Will pm1 discharge to home with tylenol #3 and lidoderm. Recommended home treatments such as massage and heating pads to help ease muscle spasm. If no improvement follow up with PCP or return to ER. 11:20 ED course: Patient reports muscle spasm pain with attempting to move to the wheelchair. pm1 Ordered additional pain medication and I performed deep muscle massage to muscle cramp and then did light massage to the area. Patient's muscle knot removed and patient reports good improvement in pain. Decreased to 6/10. 11:20 ED course: Mother observe massage and recommended that she can massage the area in the pm1 same manner, use heat therapy and medications as directed. Administered Medications: 09:30 Drug: Lidoderm 5 % (700 mg/patch) 1 patches Route: Topical; Site: affected area; bp 09:30 Drug: fentaNYL (PF) 25 mcg Route: IM; Site: right deltoid; bp 11:16 Follow up: Response: Pain is decreased bp 11:15 Drug: [place] 10 mg-325 mg 1 tabs Route: PO; bp 12:03 Follow up: Response: Pain is decreased bp Disposition: 12:10 Co-signature as Attending Physician, Damian Reina MD. rn Disposition: 02/15/20 10:53 Discharged to Home. Impression: Strain of muscle, fascia and tendon of lower back. - Condition is Stable. - Discharge Instructions: Back Pain, Adult, Muscle Strain. - Prescriptions for Lidoderm 5 % Topical adhesive patch,medicated - apply 1 patch by TRANSDERMAL route once daily As needed 12 hours on and 12 hours off in 24 hour period; 30 Transdermal Patch. Tylenol- Codeine #3 300-30 mg Oral Tablet - take 2 tablets by ORAL route every 6 hours As needed; 20 tablet. - Medication Reconciliation Form, Thank You Letter, Antibiotic Education, Prescription Opioid Use form. - Follow up: Emergency Department; When: As needed; Reason: Worsening of condition. Follow up: Private Physician; When: 2 - 3 days; Reason: Recheck today's complaints, Continuance of care, Re-evaluation by your physician. - Problem is new. - Symptoms have improved. Signatures: Damian Reina MD MD rn Marinas, Patrick, NP TABLE MACHINE OPERATOR pm1 Jignesh Arellano RN RN bp Corrections: (The following items were deleted from the chart) 12:04 10:53 02/15/2020 10:53 Discharged to Home. Impression: Strain of muscle, fascia and bp tendon of lower back. Condition is Stable. Forms are Medication Reconciliation Form, Thank You Letter, Antibiotic Education, Prescription Opioid Use. Follow up: Emergency Department; When: As needed; Reason: Worsening of condition. Follow up: Private Physician; When: 2 - 3 days; Reason: Recheck today's complaints, Continuance of care, Re-evaluation by your physician. Problem is new. Symptoms have improved. pm1
--- NOTE | 2020-02-15 10:53 | ER ---
Nurse's Notes 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 bp Coronavirus screen: At this time, the client does not indicate any symptoms associated with coronavirus-19. Ebola Screen: No symptoms or risks identified at this time. Initial Sepsis Screen: Does the patient meet any 2 criteria? No. Patient's initial sepsis screen is negative. Does the patient have a suspected source of infection? Yes: Skin breakdown/wound. Risk Assessment: Do you want to hurt yourself or someone else? Patient reports no desire to harm self or others. Note PT 2 YR S/P LEFT ANKLE FX, 2 WK BONE GRAFT LEFT ANKLE. Onset of symptoms was February 15, 2020 at 08:00. Care prior to arrival: Medication(s) given: 30MG IM TORADOL. 08:45 Method Of Arrival: EMS: [facility] bp 08:45 Acuity: KADIE 3 bp Triage Assessment: 08:45 General: Appears in no apparent distress. uncomfortable, obese, Behavior is bp cooperative, appropriate for age, anxious. Pain: Complains of pain in left leg. 08:45 EENT: No deficits noted. Neuro: No deficits noted. Cardiovascular: No deficits noted. bp Respiratory: No deficits noted. GI: No signs and/or symptoms were reported involving the gastrointestinal system. : No signs and/or symptoms were reported regarding the genitourinary system. Derm: No deficits noted. Musculoskeletal: LLE EXTERNAL FIXATOR IN PLACE. Historical: - Allergies: 09:01 No Known Allergies; bp - Home Meds: 09: Actos 30 mg Oral tab 1 tab once daily [Active]; calcium acetate Oral [Active]; bp clonidine HCl 0.2 mg Oral tab 1 tab 2 times per day [Active]; Lantus 100 unit/mL Sub-Q soln 28 unit daily [Active]; - PMHx: 09:01 Diabetes - IDDM; Hypertension; Dialysis; Renal Disease; bp - Immunization history:: Last tetanus immunization: up to date. - Social history:: Smoking status: Patient denies any tobacco usage or history of. Screenin:45 Abuse screen: Denies threats or abuse. Denies injuries from another. Nutritional bp screening: No deficits noted. Tuberculosis screening: No symptoms or risk factors identified. Fall Risk Fall in past 12 months (25 points). Secondary diagnosis (15 points) impaired mobility, No IV (0 pts). Ambulatory Aid- None/Bed Rest/Nurse Assist (0 pts). Gait- Normal/Bed Rest/Wheelchair (0 pts) Mental Status- Oriented to own ability (0 pts). Total Zhang Fall Scale indicates Low Risk Score (25-44 pts). Fall prevention measures have been instituted. Side Rails Up X 2 Placed close to Nursing Station Frequent Obs/Assesments occuring Family Present and informed to notify staff if they need to leave bedside As available Patient and Family Educated on Fall Prevention Program and strategies. Assessment: 08:45 General: SEE TRIAGE NOTE. bp 10:12 Reassessment: Patient appears in no apparent distress at this time. Patient and/or bp family updated on plan of care and expected duration. Pain level reassessed. Patient is alert, oriented x 3, equal unlabored respirations, skin warm/dry/pink. Patient states feeling better. 11:15 Reassessment: D/C ON HOLD 2/2 MUSCLE SPASMS. bp 11:45 Reassessment: PT STILL DECLINING TO TRANSFER TO W/C, PROVIDER INFORMED. bp 12:02 Reassessment: PT SUCCESSFULLY TRANSFERRED TO W/C, D/C HOME WITH FAMILY, DX WITH MUSCLE bp SPASM. Vital Signs: 08:45 BP 144 / 83; Pulse 80; Resp 16; Temp 98; Pulse Ox 99% ; bp 09:07 BP 141 / 67; Pulse 84; Resp 16; Pulse Ox 100% ; bp 10:12 BP 127 / 64; Pulse 78; Resp 16; Pulse Ox 99% ; bp 11:15 BP 122 / 70; Pulse 77; Resp 20; Temp 98; Pulse Ox 100% ; bp ED Course: 08:43 Patient arrived in ED. em1 08:45 Arm band placed on. bp 08:45 Patient has correct armband on for positive identification. Bed in low position. Call bp light in reach. Side rails up X2. 08:56 Jignesh Arellano, RN is Primary Nurse. bp 09:00 Triage completed. bp 09:02 Noel Chen NP is PHCP. pm1 09:02 Damian Reina MD is Attending Physician. pm1 11:15 No provider procedures requiring assistance completed. Patient did not have IV access bp during this emergency room visit. Administered Medications: 09:30 Drug: Lidoderm 5 % (700 mg/patch) 1 patches Route: Topical; Site: affected area; bp 09:30 Drug: fentaNYL (PF) 25 mcg Route: IM; Site: right deltoid; bp 11:16 Follow up: Response: Pain is decreased bp 11:15 Drug: Kotlik 10 mg-325 mg 1 tabs Route: PO; bp 12:03 Follow up: Response: Pain is decreased bp Outcome: 10:53 Discharge ordered by MD. pm1 12:02 Discharged to home via wheelchair, with family. bp 12:02 Condition: stable 12:02 Discharge instructions given to patient, Instructed on discharge instructions, follow up and referral plans. medication usage, Demonstrated understanding of instructions, follow-up care, medications, Prescriptions given X 2. 12:04 Patient left the ED. bp Signatures: Prasanth Culp em1 Noel Chen, TC LEAD BASED PAINT TECHNICIAN pm1 Jignesh Arellano, RN RN bp Corrections: (The following items were deleted from the chart) 12:02 12:01 Reassessment: PT STILL DECLINING TO TRANSFER TO W/C bp bp
[2020-02-15] MEDS ORDERED: HYDROCODONE/APAP 10/325 TAB ONE (11:26)
[2020-02-15 12:34] VITALS: TEMP 98
[2020-02-15 12:38] VITALS: BP 122/70; O2SAT 100
== END 2020-02-15 12:04 | disposition home or self-care (01) ==
LOC: ER 08:39
DX: S39.012A Strain of muscle, fascia and tendon of lower back, initial encounter (principal); I12.0 Hypertensive chronic kidney disease with stage 5 chronic kidney disease or end stage renal disease; E11.22 Type 2 diabetes mellitus with diabetic chronic kidney disease; N18.6 End stage renal disease; Z79.4 Long term (current) use of insulin; Z99.2 Dependence on renal dialysis; Z91.15 Patient's noncompliance with renal dialysis
CPT/HCPCS: 96372; 99283; J3010